=== PATIENT | female | born 1975 | race Caucasian/White ===

== ENCOUNTER → 2018-01-05 08:17 | Outpatient (CLI) | payer BC, SELFPAY ==
--- NOTE | 2018-01-05 08:22 | US_ITS ---
STUDY: ABDOMINAL ULTRASOUND - RIGHT UPPER QUADRANT REASON FOR VISIT: Female, 42 years old. Abdominal pain. TECHNIQUE: Ultrasound evaluation of the right upper quadrant was performed with real-time and static shultz-scale imaging. TECHNICAL QUALITY: Adequate. COMPARISON: None. FINDINGS: Liver: The liver measures 14.7 cm. There is normal echogenicity of the liver. The bile ducts are within normal limits. There is hepatic color flow. The direction of portal flow is hepatopetal. There is no demonstrated mass lesion. Gallbladder: Normal distended gallbladder. The gallbladder wall measures 2.4 mm. There is a negative sonographic Lorenz's sign. There is no pericholecystic fluid. There are no gallstones. Common Bile Duct (C.B.D.): The common bile duct measures 3.0 mm. Pancreas: Normal size of the head, body and tail of the pancreas. There is normal echogenicity of the pancreas. There is no demonstrated pancreatic mass or cyst. Right Kidney: Normal size of the right kidney. The right kidney measures 11.7 cm x 3.5 cm x 4.9 cm. Normal renal cortex. The right cortex measures 1.7 cm. There is no demonstrated renal mass or cyst. There is no right hydronephrosis. US/Gallbladder IMPRESSION: Normal right upper quadrant ultrasound examination. Electronically Signed: Shemar Cano MD at 15:53 EST Tel [phone], Service support ,
== END ==
PROVIDERS: Family Provider Family Medicine; PCP Family Medicine; Visit Provider Family Medicine
DX: R10.9 Unspecified abdominal pain (principal)
CPT/HCPCS: 76705

== ENCOUNTER → 2018-08-25 15:22 | Outpatient (CLI) | payer BC, SELFPAY | PROVIDERS: Family Provider Family Medicine; PCP Family Medicine; Referring Provider Family Medicine; Visit Provider Family Medicine | DX: R30.0 Dysuria (principal) | CPT/HCPCS: 87086; 87088 ==

== ENCOUNTER → 2018-09-30 15:12 | Outpatient (CLI) | payer BC, SELFPAY ==
--- NOTE | 2018-09-30 15:15 | RAD_ITS ---
STUDY: X-RAY - LUMBAR SPINE REASON FOR EXAM: Female, 42 years old. Pain TECHNIQUE: 5 view(s) of the lumbar spine were obtained. COMPARISON: None FINDINGS: Normal lumbar lordosis. There is no substantial scoliosis. There is a normal alignment of the vertebrae. Normal vertebral bodies and endplates. Normal disc space heights. The soft tissue structures are unremarkable. RAD/L/S Spine Min 4 Views IMPRESSION: Normal x-ray examination of the lumbar spine. Electronically Signed: César Hoyt MD at 15:23 EDT , Service support ,
== END ==
PROVIDERS: Family Provider Family Medicine; PCP Family Medicine; Referring Provider Family Medicine; Visit Provider Family Medicine
DX: M54.32 Sciatica, left side (principal)
CPT/HCPCS: 72110

== ENCOUNTER 2018-10-06 19:27 | Emergency (ER) | payer BC, SELFPAY ==
[2018-10-06 19:28] VITALS: BP 124/74; PULSE 104; RESP 14; TEMP 36.8; O2SAT 98; BMI 26.9
--- NOTE | 2018-10-06 20:37 | ED.VISSUMM ---
- ER Visit Summary Date of Service: 10/06/18 Chief Complaint: Back pain History of Present Illness: The patient is a 42 F with back pain for the past few weeks, had an x-ray done symptomatic by PCP, he examined her today and then she developed worse pain. She has no radiation. She has no bowel bladder compromise no urinary retention symptoms. She has no fever or chills. Physical Examination: Otherwise unremarkable exam, she has a soft abdomen with no suprapubic pain or mass. She has tenderness over the L5 and sacral region. This is midline pain. She has normal patellar and Achilles reflexes. She has normal plantar flexion of both feet normal dorsiflexion of both great toes. Emergency Department Course and Treatment: Patient will be treated with analgesia and discharged to follow-up with PCP she has no red flags. She will need physical therapy. Discharge stable condition Impression: Back pain This note was generated with [employer] dictation software. It may contain incorrect words, spelling, and punctuation that were not noted in review of the chart prior to signing ED Disposition - Plan for ED Patient: Disposition: Home or Assisted Living Chief Complaint: Back Instructions: ED Sprain Strain Lumbar Prescriptions: Hydrocodone Bitart/Apap 5-325 [[place] 5MG-325MG] 1 tab PO Q4H PRN PRN 2 Days #10 tab PRN Reason: Pain Referrals: Walker Rodgers MD [Primary Care Provider] -
--- NOTE | 2018-10-06 20:41 | ED.DCSUM_ITS ---
- ER Visit Summary Date of Service: 10/06/18 Chief Complaint: Back pain History of Present Illness: The patient is a 42 F with back pain for the past few weeks, had an x-ray done symptomatic by PCP, he examined her today and then she developed worse pain. She has no radiation. She has no bowel bladder com promise no urinary retention symptoms. She has no fever or chills. Physical Examination: Otherwise unremarkable exam, she has a soft abdomen with no suprapubic pain or mass. She has tenderness over the L5 and sacral region. This is midline pain. She has normal patellar and Achilles reflexes. She has normal plantar flexion of both feet normal dorsiflexion of both great toes. Emergency Department Course and Treatment: Patient will be treated with analgesia and discharged to follow-up with PCP she has no red flags. She will need physical therapy. Discharge stable condition Impression: Back pain This note was generated with [employer] dictation software. It may contain incorrect words, spelling, and punctuation that were not noted in review of the chart prior to signing ED Disposition - Plan for ED Patient: Disposition: Home or Assisted Living Chief Complaint: Back Instructions: ED Sprain Strain Lumbar Prescriptions: Hydrocodone Bitart/Apap 5-325 [[place] 5MG-325MG] 1 tab PO Q4H PRN PRN 2 Days #10 tab PRN Reason: Pain Referrals: Walker Rodgers MD [Primary Care Provider] -
[2018-10-06] MEDS: HYDROmorphone 1 MG/ML Syringe SC (20:43)
[2018-10-06 21:16] VITALS: BP 121/74; PULSE 101; RESP 18; O2SAT 97
--- NOTE | 2018-10-06 21:21 | ED.RN ---
no reaction noted at injection site.
== END 2018-10-06 21:21 | disposition home or self-care (01) ==
PROVIDERS: Emergency Provider Emergency Medicine; Family Provider Family Medicine; PCP Family Medicine
DX: M54.5 Low back pain (principal); G89.29 Other chronic pain; F32.9 Major depressive disorder, single episode, unspecified
CPT/HCPCS: 96372; 99282

== ENCOUNTER 2018-11-04 15:30 | Outpatient (RCR) | payer BC, SELFPAY ==
--- NOTE | 2018-10-09 16:29 | HP.PTEVAL ---
Patient's Visit Information VÍCTOR CARRERO is a 42 year old F referred to Physical Therapy by Jairon Perdomo with a diagnosis of BACK PAIN. Date of Evaluation: 10/09/18 Physical Therapist: Jeet Richmond PT, - Visit Plan Frequency: 2x /Week Duration: 4 Weeks Plan: KIRT EX'S ,PROGRESS TO GRADE DLS,POSTURAL EX'S,MANUAL THERAPY,MODALTIES FOR PAIN RELEIVE - Subjective Subjective: This 42 y/o female presents to physical therapy back pain since July 2018. Patient symptoms onset in left side but centralized in lumbar . Symptoms aggraveted with crossfit fit activities. Patient symptoms becomae worse in August. Patient followed with MD then nadege PT. Patient went ER 2days ago few days symptoms worse did tramadol. Patient seen chiropractor ,massage. Symptoms bending,lifting,sitting. Symptoms better with walking. Coughing/seezing +. Pain affects sleeping. Bowel/bladder good.No h/o back pain.Pain symtrical lumbar.Denies parathesia/tingling.Symptoms affects QOL and affect function. SOCIAL: single. VOCATION: [employer] - Pain Bilateral Back Pain Intensity (Out of 10): 2 Pain Intensity Range: 10 Bilateral Lower Extremity Pain Intensity (Out of 10): 0 Pain Intensity Range: 10 - Objective POSTURE: mild foward posture. GAIT: reciprocal pattern. NEURO: reflexes L3-4,L4-5,L5-S1 2/3,mytomes intact. MMT: quads/hams/hip 4/5 ,ankle 4/5. LUMBAR ROM: flexion mod/severe,mod/severe pain,side glides min loss. FLEXABLITY: min hams - Special Tests L/S Slump test left side: Positive L/S Slump test right side: Positive L/S Left Straight Leg Raise: Positive L/S Right Straight Leg Raise: Positive Lumbar Standing: Flexion - Mechanical Response: No effect Lumbar Standing: Flexion - Symptoms During Testing: Increases Lumbar Standing: Flexion - Symptoms After Testing: Worse Lumbar Standing: Extension - Mechanical Response: No effect Lumbar Standing: Extension - Symptoms During Testing: Increases Lumbar Standing: Extension - Symptoms After Testing: No worse Lumbar Standing: Right Side Glides - Mechanical Response: No effect Lumbar Standing: Right Side [place] - Symptoms During Testing: No effect Lumbar Standing: Right Side [place] - Symptoms After Testing: No effect Lumbar Standing: Left Side [place] - Mechanical Response: No effect Lumbar Standing: Left Side [place] - Symptoms During Testing: No effect Lumbar Standing: Left Side [place] - Symptoms After Testing: No effect Lumbar Lying: Flexion - Mechanical Response: No effect Lumbar Lying: Flexion - Symptoms During Testing: Increases Lumbar Lying: Flexion - Symptoms After Testing: Worse Lumbar Lying: Extension - Mechanical Response: No effect Lumbar Lying: Extension - Symptoms During Testing: Centralizing Lumbar Lying: Extension - Symptoms After Testing: No worse - Goals Goal 1:: Independant with HEP Goal Time Frame: 4-6 Weeks Goal 2:: Patient to be Independant with posture/body mechanics Goal Time Frame: 4-6 Weeks Goal 3:: Patient to decrease lumbar pain by 70% or greater to improve function Goal Time Frame: 4-6 Weeks Goal 4:: Patient to improve lumbar ROM for function of recovery Goal Time Frame: 4-6 Weeks Goal 5:: Patient to impove CANDY back score by 5 points to improve QOL. Goal Time Frame: 4-6 Weeks Goal 6:: Patient be able to return to prior level of function,ADL'S working out with min limiations Goal Time Frame: 4-6 Weeks - Rehabilitation Potential Physical Therapy Diagnosis: This patient has central symmtrical derrangement with disc involvemnt with with poor flexion/extension ,better with REIL ,posture correction,walking ,worse with bending,sitting. Thus benifit from skilled PT. Rehabilitation Potential: Good - Anticipated Interventions Patient/Client Instruction: Educate patient on: Condition, Plan of Care For the Purpose of:: To decrease pain, To increase ROM, To improve muscle performance and motor function, To improve ability to perform ADL's, To increase tolerance to activity/condition/position, To improve ability of physical actions for home/community/work/leisure, To improve health of tissue, To decrease soft tissue restriction, To increase flexibility/ROM, To improve tolerance to ADL's Therapeutic Exercise to Include: Strength training, Postural training, Flexibilty training, Dynamic Lumbar Stabilization, Kirt Exercises For the Purpose of:: To decrease pain, To increase ROM, To improve muscle performance and motor function, To increase tolerance to activity/condition/position, To improve performance and independence with ADL's, To improve ability of physical actions for home/community/work/leisure, To improve health of tissue, To decrease soft tissue restriction, To increase flexibility/ROM, To improve ability to perform tasks related to life management Manual Therapy Techniques to Include: Mobilization Comment: LUMBAR For the Purpose of:: To decrease pain, To increase ROM, To improve health of tissue, To decrease soft tissue restriction, To improve ability to perform tasks related to life management TENS: Yes IF ES: Yes Cryotherapy (ice pack, ice massage): Yes Thermo therapy (hot pack): Yes Ultrasound (thermal/non thermal): Yes For the Purpose of:: To decrease pain, To decrease swelling/inflammation, To increase ROM, To improve health of tissue, To decrease soft tissue restriction Thank you for the opportunity to evaluate your patient. For Medicare and Medicare HMO plans, please review the plan of care and approve it. It will need to be FAXED BACK to us at [phone] for Medicare purposes. Please let me know if there are questions or concerns regarding this plan of care. Physician Signature: Date:
--- NOTE | 2018-11-04 17:40 | HP.PTDCSUM ---
HP - PT D/C Summary It has been my pleasure to treat VÍCTOR CARRERO under orders from Amandepe Perdomo MD, for the diagnosis of BACK PAIN for a total of 7 visit(s). Discharge Date: 11/04/18 Please see the following information for a summary of their discharge status. - Subjective Subjective: Doing well ..no pain. Return to crossfit - Pain Bilateral Back Pain Intensity (Out of 10): 0 Bilateral Lower Extremity Pain Intensity (Out of 10): 0 - Overall Improvement % Improvement: 90 - Objective Objective/Function: POSTURE: WFL. GAIT: normal nestor. MMT: quads/hams/hip 4/5,ankle 5/5. LUMBAR ROM: WNL all planes. -SLR - Goals Goal 1:: Independant with HEP Goal Progress: Goal Met Goal 2:: Patient to be Independant with posture/body mechanics Goal Progress: Goal Met Goal 3:: Patient to decrease lumbar pain by 70% or greater to improve function Goal Progress: Goal Met Goal 4:: Patient to improve lumbar ROM for function of recovery Goal Progress: Goal Met Goal 5:: Patient to impove CANDY back score by 5 points to improve QOL. Goal Progress: Goal Met Goal 6:: Patient be able to return to prior level of function,ADL'S working out with min limiations Goal Progress: Goal Met - Plan Plan: D/C - D/C Information If there are questions or concerns regarding this patient's physical therapy, please feel free to call me at [phone]. Thank you for the referral of this patient. Sincerely, Jeet Richmond, PT,
== END 2018-11-04 19:00 | disposition home or self-care (01) ==
LOC: PT 15:30
PROVIDERS: Family Provider Family Medicine; PCP Family Medicine; Referring Provider Family Medicine; Visit Provider Family Medicine
DX: M54.9 Dorsalgia, unspecified (principal); M54.5 Low back pain
CPT/HCPCS: 97014; 97035; 97110; 97161; G0283

== ENCOUNTER → 2018-11-17 13:47 | Outpatient (CLI) | payer BC, SELFPAY ==
--- NOTE | 2018-11-17 13:53 | BI_ITS ---
MAMMOGRAPHY - BILATERAL DIAGNOSTIC REASON FOR EXAM: Female, 42 years old. Recent bilateral breast implants with possible rupture of the left breast implant. Tenderness in the upper outer quadrant of the left breast. PERTINENT HISTORY: Non-contributory. TECHNIQUE: Digital bilateral breast meghan (3D mammographic acquisition) in the CC and MLO projections. 2-D mediolateral oblique (MLO) and craniocaudad (CC) views of both breasts were obtained. CAD: Full Field Digital Mammography with Computer Added Detection was performed. COMPARISON: Comparison is made with prior outside examination dated April 24, 2017. FINDINGS: Breast Composition: There are scattered areas of fibroglandular density. There are no dominant masses or suspicious calcifications. Bilateral breast implants are seen. The left breast implant is smaller than the right. No mammographic evidence of rupture at this time. No other significant abnormalities are identified. BI/DIAG MAMM W/CAD, BILAT IMPRESSION: Stable bilateral diagnostic mammogram. One year follow-up recommended. (A) ASSESSMENT CATEGORY: BIRADS Category 2: Benign. A letter regarding these results will be sent to the patient by the facility within 30 days. Approximately 10% of breast cancers are not detected by mammography. A normal mammogram should not delay biopsy of a clinically suspicious abnormality. Electronically Signed: Shemar Cano MD at 15:12 EST Tel [phone], Service support ,
--- NOTE | 2018-11-17 13:54 | US_ITS ---
STUDY: ULTRASOUND BREAST - LEFT REASON FOR EXAM: Female, 42 years old. Left lateral breast pain. TECHNIQUE: Axial and longitudinal images of the LEFT breast were performed with a high resolution ultrasound transducer. COMPARISON: Comparison is made with prior mammogram done earlier in the day. FINDINGS: LEFT Breast: The lower outer quadrant of the left breast was examined by ultrasound. There is homogeneous fibroglandular tissue. No solid or cystic mass lesion is seen. The breast implant is visualized. US/Breast Limited Unilateral IMPRESSION: No sonographic abnormality is seen. ASSESSMENT CATEGORY: BIRADS Category 2: Benign. A letter regarding these results will be sent to the patient by the facility within 30 days. Electronically Signed: Shemar Cano MD at 15:50 EST Tel [phone], Service support ,
--- OUTSIDE RECORDS SUMMARY | 2019-02-19 01:14 | XMS RPT_ITS | Clinical Summary ---
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 Cubital tunnel 37446562 Active Long S Cubital tunnel syndrome (SNOMED CT) 03/12 03/26 Tutu syndrome Pain in right 89356594 Active Long S Pain in elbow elbow (SNOMED CT) 03/12 03/26 Tutu Cervical 16443716 Active Long S Cervical radiculopathy (SNOMED CT) 03/12 03/12 Tutu radiculopathy Medications Medication Instructions Start Stop Generic Name NDC Provider Date Date FLUOXETINE HCL One tablet by FLUOXETINE HCL 92994497131 Hannah N 20 MG CAPS mouth daily 5 Anthony ETODOLAC 400 One tablet by ETODOLAC 39457625820 Hannah N MG TABS mouth twice 5 Anthony daily MIRALAX PACK 17 GRAMS ORAL POLYETHYLENE 46677052161 Hannah N DAILY 5 GLYCOL 3350 Anthony Medications Administered No information available. Allergies, Adverse Reactions, Alerts Allergy Name Reaction Description Start Date Severity Status Provider SHERRY SLEEPYulisa Critical Active Hannah N Anthony CODEINE SULFATE GI UPSET Critical Active Hannah N Anthony Results Date Name Value Unit Range Flag Description Office Visit MEDS REVIEW Done Documentation of current medications (procedure) ORALTOBACUSE Never Tobacco smoking status NHIS SMOK STATUS Never smoker Tobacco smoking status [facility] Plan of Care Type Date Detail Referral [facility], [address] [place] [address], [phone] Referral [facility], [address] [place] [address], [phone] Pending order EMG Pending order Nerve Conduction Pending order X-Ray, Spine, Cervical 2-3 views Pending order EMG Pending order Nerve Conduction Pending order Nerve Conduction Pending Order excluded from report: Pending order EMG Pending Order excluded from report: Procedures No information available. Vital Signs Date Name Value Unit Description BMI (Body Mass Index) 28.66 kg/m2 Body Mass Index [Ratio] Height 64 [in_us] height E&M - 8302-2 Weight Measured 167 [lb_av] weight E&M - 3141-9
--- OUTSIDE RECORDS SUMMARY | 2019-02-19 01:14 | XMS RPT_ITS | Clinical Summary ---
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 Cubital tunnel 14971362 Active Long S Cubital tunnel syndrome (SNOMED CT) 03/12 03/26 Tutu syndrome Pain in right 24090944 Active Long S Pain in elbow elbow (SNOMED CT) 03/12 03/26 Tutu Cervical 32451591 Active Long S Cervical radiculopathy (SNOMED CT) 03/12 03/12 Tutu radiculopathy Medications Medication Instructions Start Stop Generic Name NDC Provider Date Date FLUOXETINE HCL One tablet by FLUOXETINE HCL 45551998292 Hannah N 20 MG CAPS mouth daily 5 Anthony ETODOLAC 400 One tablet by ETODOLAC 15307753313 Hannah N MG TABS mouth twice 5 Anthony daily MIRALAX PACK 17 GRAMS ORAL POLYETHYLENE 27050277556 Hannah N DAILY 5 GLYCOL 3350 Anthony [...] status NHIS SMOK STATUS Never smoker Tobacco use [facility] Plan of Care Type Date Detail Referral [facility], [address] [place] [address], [phone] Referral [facility], [address] [place] [address], [phone] Pending order EMG Pending order Nerve Conduction [...]
--- OUTSIDE RECORDS SUMMARY | 2019-02-19 01:14 | XMS RPT_ITS | Clinical Summary ---
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 Cubital tunnel 70348545 Active Long S Cubital tunnel syndrome (SNOMED CT) 03/12 03/26 Tutu syndrome Pain in right 12465107 Active Long S Pain in elbow elbow (SNOMED CT) 03/12 03/26 Tutu Cervical 39218048 Active Long S Cervical radiculopathy (SNOMED CT) 03/12 03/12 Tutu radiculopathy Medications Medication Instructions Start Stop Generic Name NDC Provider Date Date FLUOXETINE HCL One tablet by FLUOXETINE HCL 89897018841 Hannah N 20 MG CAPS mouth daily 5 Anthony ETODOLAC 400 One tablet by ETODOLAC 95303206787 Hannah N MG TABS mouth twice 5 Anthony daily MIRALAX PACK 17 GRAMS ORAL POLYETHYLENE 26206463853 Hannah N DAILY 5 GLYCOL 3350 Anthony [...] NHIS SMOK STATUS Never smoker Tobacco use [facility] Plan of Care Type Date Detail Appointment 03:30 PM Long Cam, [address], [address], [place], [address], Referral [facility], [address], [place], [address] Referral [facility], [facility], [place], [address] Pending order EMG Pending order Nerve Conduction [...]
--- OUTSIDE RECORDS SUMMARY | 2019-02-19 01:14 | XMS RPT_ITS ---
:1975 Author Organization OHIP Care Team Providers Name Role Phone GUDELIA RG Referring Unavailable GUDELIA RG Admitting Unavailable GUDELIA RG Attending Unavailable DARION BRICENO Attending Unavailable Rodgers, Walker Primary Care Unavailable DARION BRICENO Consulting Unavailable Vishal, Walker Attending Unavailable Rodgers, Walker Referring Unavailable Rodgers, Walker Primary Care Unavailable Schinner, Walker E Attending Unavailable Schinner, Walker E Referring Unavailable Rodgers, Walker Primary Care Unavailable Referred, Self Attending Unavailable Rodgers, Walker Primary Care Unavailable Rodgers, Walker Attending Unavailable Rodgers, Walker Referring Unavailable Rodgers, Walker Primary Care Unavailable Rodgers, Walker Primary Care Unavailable Michele Hanks Attending Unavailable Leanne, Jairon Attending Unavailable Leanne, Jairon Referring Unavailable Rodgers, Walker Primary Care Unavailable PROBLEMS PROBLEMS DATE TYPE CONDITION / CODE ATTENDING STATUS SOURCE 12/18/2018 Active Other acute ABDULLAHICHARLEY HALLNETH Active [place] [facility] Other / G89.18(ICD-10) [place] Repository 11/05/2018 Unknown M54.9 - Dorsalgia, SathishjenniferMichele Active [place] unspecified / Community M54.9(ICD-10) Hospital Repository 11/05/2018 Unknown M54.32 - Sciatica, Walker Rodgers Active [place] left side / Community M54.32(ICD-10) Hospital Repository 09/14/2018 Unknown R30.0 - Dysuria / SchindukeWalker Active [place] R30.0(ICD-10) E [facility] Repository 01/23/2018 Unknown R10.9 - Unspecified Walker Rodgers Active [place] abdominal pain / Community R10.9(ICD-10) Hospital Repository PROCEDURES PROCEDURES No Procedure Records FoundRESULTS RESULTS PLAN OF CARE Observed: 12/18/2018 Status: COMPLETED Source: [place] 5:18 PM CLINIC OTHER CAMPUS REPOSITORY HNO ID: [id number] Author: Christian Fraga (Occupational Therapy Manager) Service: (none) Author Type: (none) Type: Plan of Care Filed: 12/18/2018 5:49 PM Note Text: PHARMACY BEDSIDE DELIVERY SERVICE Patient Name: Víctor Junior The marked outpatient medications were Filled at: [facility] and delivered to the patient's bedside to patient Medication List START taking these medications oxyCODONE-acetaminophen 5-325 mg tablet Commonly known as: PERCOCET Take 1 tablet by mouth every 4 hours as needed for Pain for up to 7 days. x CONTINUE taking these medications JOHNNY ORAL escitalopram oxalate 20 mg tablet Commonly known as: LEXAPRO HAIR VITAMINS ORAL OTC PRODUCT You might also be taking other medications not listed above. If you have questions about any of your other medications, talk to the person who prescribed them or your Primary Care Provider. Christian Fraga ([email or web address]) PAGER: [phone] December 18, 2018 5:18 PM ANES POST Observed: 12/18/2018 Status: COMPLETED Source: [place] 4:50 PM [facility] OTHER [place] REPOSITORY HNO ID: [id number] Author: Gerard Nolasco) Coleen Service: Anesthesiology Author Type: Resident Type: Anesthesia PostOp Filed: 12/18/2018 4:50 PM Note Text: POST ANESTHESIA EVALUATION NOTE SERVICE DATE: 12/18/2018 SERVICE TIME: 4:50 PM : 1975 Vitals: 12/18/18 1043 12/18/18 1458 Temp: 37 ?C (98.6 ?F) 36.4 ?C (97.5 ?F) 12/18/18 1515 12/18/18 1530 12/18/18 1545 12/18/18 1615 BP: 121/68 117/62 108/58 117/56 12/18/18 1515 12/18/18 1530 12/18/18 1545 12/18/18 1615 Pulse: 89 89 88 97 12/18/18 1515 12/18/18 1530 12/18/18 1545 12/18/18 1615 Resp: 18 18 18 18 12/18/18 1515 12/18/18 1530 12/18/18 1545 12/18/18 1615 SpO2: 95% 93% 95% 95% Validated Vital Signs: Yes POST ANES STATUS: No apparent anesthetic complications. The patient is appropriately hydrated with stable respiratory and cardiovascular status. Patient has safe and adequate airway control. The patient has appropriate pain relief and no significant post operative nausea or vomiting. The patient has achieved baseline mental status. Intra-Operative Events: No Significant Anesthesia Events Further assessment by Anesthesia Service: None Other Remarks: SIGNATURE: Gerard Horne DO PATIENT NAME: Víctor Junior DATE: December 18, 2018 TIME: 4:50 PM PAGER/CONTACT #: [phone] PT ED Observed: 12/18/2018 Status: COMPLETED Source: [place] 4:34 PM [facility] OTHER [place] REPOSITORY HNO ID: [id number] Author: Amy (Rn) CASPER Tran Service: Nursing Author Type: Registered Nurse Type: Patient Education Filed: 12/18/2018 4:37 PM Note Text: PATIENT EDUCATION TOPIC: PROCEDURE / SURGERY: Post-op Teaching: discharge PATIENT NAME: Víctor Junior PATIENT LOCATION: SURGERY CTR POOL/SP S* READINESS TO LEARN COGNITIVE ABILITY: Alert and oriented MOTIVATION TO LEARN: Eager FAMILY SUPPORT: High - Very involved in pt care INSTRUCTION PROVIDED TO: Patient and Significant Other PATIENT LEARNS BEST BY: Individual Instruction Written Instruction - Hand-outs Verbal Instruction FACTORS AFFECTING LEARNING: None PHYSICAL LIMITATIONS AFFECTING LEARNING: None LEARNING RESPONSE DIAGNOSIS: ADULT: Mastopexy breast augmentation PATIENT/FAMILY RESPONSE: Verbalizes understanding of: POST OPERATIVE INSTRUCTIONS RELATED TO: ROUTINE MONITORING AND PROCEDURES: N/A, CARE TO PREVENT COMPLICATIONS: Incisional Care and Early Ambulation, PAIN CONTROL: Pain Scale, USE OF KNEE IMMOBILIZER: N/A, HOW TO GAIN MOTION BACK: N/A, PRE DISCHARGE: Follow up arrangement with physician, Safety precautions and Bathing, ADVERSE CONDITIONS TO INFORM YOUR DOCTOR: Signs AND symptoms of blood clot, Fever degree greater than 100F or 37.7C and Severe pain at surgical site METHOD OF INSTRUCTION: Individual instruction Written instruction - handouts Verbal instruction FOLLOW-UP PLAN: Recommend - Recommend continued instruction and follow up as directed INSTRUCTIONAL AIDS USED: NA SUPPLEMENTAL MATERIAL PROVIDED TO PATIENT: None REFERRAL (RECOMMENDATION): None Electronically Signed By: Amy Tran RN BRIEF OP NOT Observed: 12/18/2018 Status: COMPLETED Source: [place] 3:10 PM CLINIC OTHER CAMPUS REPOSITORY O ID: [id number] Author: Gudelia Rg Service: Plastic Surgery Author Type: Physician Type: Brief Op Note Filed: 12/18/2018 3:11 PM Note Text: BRIEF OPERATIVE / PROCEDURE NOTE LOG ID: [id number] SURGERY/PROCEDURE DATE: 12/18/2018 INCISION/PROCEDURE START TIME: 12:17 PM INCISION CLOSE/PROCEDURE END TIME: 2:43 PM SURGEON(S)/PROCEDURALIST(S) AND CLOTHES WRINGER(S): Surgeon(s) and Role: * Gudelia Rg - Primary Floor Manager: Boo Smith SURGERY/PROCEDURE(S): bilateral breast implant exchange and mastopexy ANESTHESIA: General FINDINGS: mammary hypoplasia ESTIMATED BLOOD LOSS: 50 mls SPECIMENS: None COMPLICATIONS: None PRE-OP/PRE-PROCEDURE DIAGNOSIS: same POST-OP/POST-PROCEDURE DIAGNOSIS: SAME SIGNATURE: Gudelia Rg MD PATIENT NAME: Víctor Junior DATE: December 18, 2018 TIME: 3:10 PM PAGER/CONTACT #: PT ED Observed: 12/18/2018 Status: COMPLETED Source: [place] 11:00 AM [facility] REPOSITORY HNO ID: [id number] Author: Usha Musa RN Service: Nursing Author Type: Registered Nurse Type: Patient Education Filed: 12/18/2018 11:01 AM Note Text: PATIENT EDUCATION TOPIC: PROCEDURE / SURGERY: Pre-op Teaching: Logistics Protocols Complication Prevention PATIENT NAME: Víctor Junior PATIENT LOCATION: SURGERY [facility] POOL/SP S* READINESS TO LEARN COGNITIVE ABILITY: Alert and oriented MOTIVATION TO LEARN: Eager FAMILY SUPPORT: Unable to assess - Family not present INSTRUCTION PROVIDED TO: Patient PATIENT LEARNS BEST BY: Verbal Instruction FACTORS AFFECTING LEARNING: None PHYSICAL LIMITATIONS AFFECTING LEARNING: None LEARNING RESPONSE DIAGNOSIS: ADULT: Mammary hypoplasi PATIENT/FAMILY RESPONSE: Verbalizes understanding of: PAIN MANAGEMENT-Effective strategies to manage pain in addition to pain medication PRE-OPERATIVE INSTRUCTIONS-Correct action to take to follow pre-operative instructions METHOD OF INSTRUCTION: Verbal instruction FOLLOW-UP PLAN: Patient instructed to call with any further issues INSTRUCTIONAL AIDS USED: NA SUPPLEMENTAL MATERIAL PROVIDED TO PATIENT: None REFERRAL (RECOMMENDATION): None Electronically Signed By: Usha Musa RN HISTORY PHYSICAL Observed: 12/18/2018 Status: COMPLETED Source: [place] 10:27 AM [facility] REPOSITORY HNO ID: [id number] Author: Olga Lidia Francis Service: Plastic Surgery Author Type: Nurse Practitioner Type: HANDP Filed: 12/18/2018 10:49 AM Note Text: UPDATED HISTORY AND PHYSICAL EXAMINATION SERVICE DATE: 12/18/2018 SERVICE TIME: 10:28 AM SERVICE: Plastic Surgery PHYSICAL EXAM MUST BE COMPLETED ON ADMISSION The History and Physical (completed in the past 30 days) has been reviewed and the patient has been examined. The contents accurately reflect the patient's condition with the following additions or revisions since the HANDP was completed. Patient denies any changes to health since last examination. Planned procedure for today is Bilateral breast augmentation implant exchange, possible mastopey. Medication reconciliation list reviewed in [facility]. Past medical history, past surgical history, social history and family history reviewed and updated in [facility]. ALLERGIES Allergen Reactions - Codeine - Morphine Mental Status Change Violent - Paxil [Paroxetine H* Unknown BP 111/58 Pulse 75 Temp 37 ?C (98.6 ?F) Resp 16 LMP 07/13/2014 SpO2 99% Examination indicates no changes. On examination today: General: Alert and appropriate. Lungs: Clear to auscultation bilaterally. Heart: Rate within normal limits. Regular rhythm . Abdomen: BS present x4, soft, non tender. A: Mammary hypoplasia P: Bilateral breast augmentation implant exchange, possible mastopey This HANDP can be found in the Electronic Medical Record dated 12/14/2018 by Isidro Lam PA-C. SIGNATURE: Olga Lidia Francis APRN.CNP PATIENT NAME: Víctor Junior DATE: December 18, 2018 TIME: 10:28 AM ANES PREOP Observed: 12/18/2018 Status: COMPLETED Source: [place] 10:09 AM [facility] OTHER CAMPUS REPOSITORY O ID: [id number] Author: Gerard Colunga (Magdalena Horne Service: Anesthesiology Author Type: Resident Type: Anesthesia PreOp Filed: 12/18/2018 10:38 AM Note Text: ANESTHESIOLOGY DAY OF SURGERY NOTE SERVICE DATE: 12/18/2018 SERVICE TIME: 10:09 AM : 1975 Procedure(s) (LRB): AUGMENTATION BREAST BILATERAL (Bilateral) Surgeon(s): Gudelia Rg Estimated body mass index is 29.52 kg/m? as calculated from the following: Height as of 12/14/18: 162.6 cm (5' 4). Weight as of 12/14/18: 78 kg (172 lb). Most recent hematocrit and potassium results: Hematocrit 39.2 10/31/2017 Potassium 3.7 10/31/2017 Component Latest Ref Rng AND Units 10/31/2017 WBC 3.70 - 11.00 k/uL 5.74 RBC 3.90 - 5.20 m/uL 4.23 Hemoglobin 11.5 - 15.5 g/dL 13.3 Hematocrit 36.0 - 46.0 % 39.2 MCV 80.0 - 100.0 fL 92.7 MCH 26.0 - 34.0 pG 31.4 MCHC 30.5 - 36.0 g/dL 33.9 RDW-CV 11.5 - 15.0 % 11.9 Platelet Count 150 - 400 k/uL 227 MPV 9.0 - 12.7 fL 11.1 Neut% % 55.0 Abs Neut (ANC) 1.45 - 7.50 k/uL 3.15 Lymph% % 34.7 Abs Lymph 1.00 - 4.00 k/uL 1.99 Schoolcraft% % 6.3 Abs [place] <0.87 k/uL 0.36 Eosin% % 3.1 Abs Eosin <0.46 k/uL 0.18 Baso% % 0.9 Abs Baso <0.11 k/uL 0.05 Nucleated Reds 0 /100 WBC 0.0 Absolute nRBC <0.01 k/uL <0.01 Diff Type Auto Diff Glucose 74 - 99 mg/dL 84 BUN 7 - 21 mg/dL 12 Creatinine 0.58 - 0.96 mg/dL 0.79 Sodium 136 - 144 mmol/L 140 Potassium 3.7 - 5.1 mmol/L 3.7 Chloride 97 - 105 mmol/L 102 CO2 22 - 30 mmol/L 26 Anion Gap 9 - 18 mmol/L 12 Calcium 8.5 - 10.2 mg/dL 8.6 eGFR- >60 eGFR-All Other Races . >60 ANES DOS/PREOP NOTE: Vitals: There were no vitals filed for this visit. 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 Current Outpatient Prescriptions on File Prior to Encounter: FEXOFENADINE HCL (JOHNNY ORAL) Take by mouth. Current Facility-Administered Medications: lidocaine 10 mg/mL (1 %) 1-2 mg injection (XYLOCAINE) 0.1- 0.2 mL INTRADERMAL PRN Gudelia Rg lactated ringers infusion 5-30 mL/hr INTRAVENOUS CONTINUOUS Gudelia Rg NaCl 0.9% 2-10 mL 2-10 mL INTRAVENOUS q 12 H Gudelia Rg ceFAZolin iv piggyback 2 g in D5W (iso-osmotic) 100 mL (ANCEF) 2 g INTRAVENOUS Pre-Op Once Gudelia Rg Allergies: ALLERGIES Allergen Reactions - Codeine - Morphine Mental Status Change Violent - Paxil [Paroxetine H* Unknown DOS EXAM: Adequate NPO status: Yes Anesthetic risks, benefits, alternatives, personnel and consent discussed: Yes Patient agrees to proceed: Yes Previous Anesthesia: No history of adverse event. Airway Assessment: MP 1; Neck ROM: Full ROM without neurologic symptoms; Airway Evaluation: No significant abnormalities Symptoms of Sleep Apnea: none Dentition: Teeth intact Additional Physical Exam: Lungs: Patient health status unchanged since recent history and physical. See history and physical for exam findings. Cardiac: Patient health status unchanged since recent history and physical. See history and physical for exam findings. Additional Pertinent Findings: N/A Blood Products: Not anticipated for this procedure. Anesthetic Plan: General, Standard ASA Monitors Pain Management Plan: Parenteral or Oral ASA Class: 2 Other Medical Problems: None Chronic Beta Adriana medication administered within 24 hours: N/A I have interviewed and examined the patient. I have reviewed the medical record and/or the pre-anesthesia evaluation, pertinent labs, and test results. Significant changes in the patient's condition since the History and Physical, not otherwise documented in primary service progress notes: No This contains updated information obtained within 48 hours of Surgery/Procedure. SIGNATURE: Lonny Shearer DO PATIENT NAME: Víctor Junior DATE: December 18, 2018 TIME: 10:09 AM CSN: [id number] HCG QUAL, URINE Collected: 12/18/2018 Status: F Source: [place] 10:03 AM [facility] REPOSITORY TYPE CODE TESTS RESULT OUT OF REFERENCE UNITS RANGE LAB UHCG Negative HCG Qual, Negative Urine OPERATIVE NO Observed: 12/18/2018 Status: COMPLETED Source: [place] 12:00 AM [facility] REPOSITORY HNO ID: [id number] Author: Gudelia Rg Service: Plastic Surgery Author Type: Physician Type: Operative Report Filed: 12/22/2018 8:35 AM Note Text: [facility] - Operative Report VÍCTOR JUNIOR : 1975 AGE: 43. SEX: F PATIENT TYPE: A HOSP SVC: PLAS LOCATION: [facility] ATTENDING PHYSICIAN: REGINA NUMBER: [id number] DATE OF SURGERY/PROCEDURE: 12/18/2018 INCISION/PROCEDURE START TIME: 12:17 PM INCISION CLOSE/PROCEDURE END TIME: 2:43 PM PREOPERATIVE DIAGNOSIS: Mammary hypoplasia. POSTOPERATIVE DIAGNOSIS: Mammary hypoplasia. SURGEON: Gudelia Rg MD CLOTHES WRINGER: Boo Smith S.A. SURGERY/PROCEDURE: Bilateral breast implant exchange with augmentation and bilateral mastopexy. ANESTHESIA: General. INDICATION FOR SURGERY: This is a woman who underwent breast augmentation approximately 1 year ago. She has been concerned regarding some continued ptosis and lack of superior full. I have discussed with her potentially removing the old implants, replacing the bigger implants, and having a mastopexy if needed. We have discussed her anticipation. I have seen pictures of her expected results and I have discussed potential realistic or unrealistic goals. She understands potential for breast augmentation with potential for bleeding, infection, hematoma, capsular contracture, interference with nipple sensitivity, , and continued deformities. She understands and wishes to proceed. DESCRIPTION OF PROCEDURE: The patient was marked in the preop area, marking the breast meridian, midline, and inframammary crease and previous incisions. She was then brought to the operating room and placed on table in supine position. After adequate anesthesia was established, the chest was prepped and draped in sterile manner. 2 g of Ancef was given intravenously. Sequential stockings were applied. The chest after being prepped and draped, the left side was 1st approached. The previous incision was opened, taken down to the breast capsule, and the implant was removed intact. This was done bilaterally. Breast sizer was used with a 545 cc sizer. This is not too large for her body frame. We planned on using a 560 cc implant. Following this, the areas were cleaned, the pocket was infiltrated and irrigated with a solution of 50,000 units of bacitracin, 1 g of Ancef, 80 mg of gentamicin and saline. Tailor-tack mastopexy was planned, tightening the inframammary crease as well as the descending limb. No-touch technique was then planned. Pre-placed sutures of 4-0 Vicryl placed in the deep tissue. [place] were cut off, held by hemostats. Gloves were changed and a Almeida funnel was then used to place 560 cc implants in a no-touch technique. The pre-placed sutures were closed. The previous pattern had been excised. Cautery was used for hemostasis and the mastopexy was closed with 4-0 and 5-0 Vicryl, 5-0 fast-absorbing gut sutures. The areas were cleaned and dressed with Aquacel surgical dressings and a surgical bra. She was taken to the recovery room in good condition. Gudelia Rg MD KA:[id number] /[id number] cc: NURSING PROG Observed: 12/17/2018 Status: COMPLETED Source: [place] 9:08 AM [facility] OTHER CAMPUS REPOSITORY HNO ID: [id number] Author: Molly Hernandez RN Service: (none) Author Type: Registered Nurse Type: Nursing Progress Note Filed: 12/17/2018 9:11 AM Note Text: PACC Nurse Progress Note History AND Physical: PACC Visit Date: 12/14/2018 Original HANDP Date: 12/14/2018 ED visit Date: N/A Outside HANDP Scanned Date: N/A Labs Within Last 6 Months: N/A Imaging Within Last 12 Months: N/A Cardiac Testing: N/A Last Menstrual Period: LMP Date: Patient's last menstrual period was 07/13/2014. Hysterectomy Postmenopausal >1yr: unknown, S/P Hysterectomy: Yes BMI Percentile (PEDS): N/A Risk Assessment: N/A Anesthesia Review: N/A Narrative: N/A Pre-op Considerations: Patient's last menstrual period was 07/13/2014. Hysterectomy Hx of: Anxiety/Depression IBS Chart Check: COMPLETED Molly Hernandez RN December 17, 2018 0911 HISTORY PHYSICAL Observed: 12/14/2018 Status: COMPLETED Source: [place] 3:02 PM [facility] [place] REPOSITORY HNO ID: [id number] Author: Bridget aLm (Pa) Service: (none) Author Type: Physician Tank Builder And Erector Type: HANDP Filed: 12/14/2018 3:49 PM Note Text: HISTORY AND PHYSICAL EXAMINATION SERVICE DATE: 12/14/2018 SERVICE TIME: 3:02 PM PRIMARY CARE PHYSICIAN: Walker Rodgers MD REASON FOR VISIT: Víctor Junior is a 43 year old female who is scheduled for BILATERAL BREAST IMPLANT EXCHANGE, POSSIBLE MASTOPEY at the request of Dr. Gudelia Rg for consultation. My final recommendation will be communicated back to the requesting physician by way of shared medical record or letter. The patient has the following: ACTIVE PROBLEM LIST Depression Celiac Disease Laxity of Abdominal Wall Ibs (Irritable Bowel Syndrome) Subjective CHIEF COMPLAINT: Breast augmentation HPI: 43 yo female with h/o bilateral breast augmentation and mastopexy 2017 with abdominoplasty. Patient states breast are not in the right place. She states she had a mammogram done recently outside of [facility]. Patient had an intended > 50 lb weight loss prior to surgery 2016. 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 PAST SURGICAL HISTORY Procedure Laterality Date - PAST SURGICAL HISTORY OF Bilateral 2017 breast augmentation with life, abdominoplasty - S TUBAL LIGATION 2004 - VAG HYST,RMV TUBE/OVARY 2014 [facility] LSO FAMILY HISTORY Problem Relation Age of Onset - Cancer Mother cervical - Coronary Artery Disease Mother - other () Father unknown history SOCIAL HISTORY: Social History Marital status: Spouse name: Years of education: Number of children: 1 Occupational History 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 Taking Yes OTC PRODUCT Daily probiotic Taking Yes multivitamin with iron (HAIR VITAMINS ORAL) Take 2 tablets by mouth once daily. Taking Yes FEXOFENADINE HCL (JOHNNY ORAL) Take by mouth. Taking Yes No medication comments found. ALLERGIES Allergen Reactions - Codeine - Morphine Mental Status Change Violent - Paxil [Paroxetine H* Unknown REVIEW OF SYSTEMS: PAIN ASSESSMENT: General: No weight loss, malaise or fevers. 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 No neurological symptoms or problems., + sinus HAs No migraines No neuropathy Respiratory: No history of current cough or dyspnea, or pneumonia in the past 6 weeks. No history of respiratory/pulmonary symptoms or problems. Cardiovascular: No history of HTN requiring medication, no history of angina, CHF, MT, cardiac surgery or stents. Denies rest pain, gangrene or revascularization/amputation for PVD. No history of cardiovascular symptoms or problems. No DVT/PE +IBS per chart GI: No history of GI symptoms or problems. No history of esophageal varices, recent ascites, or ETOH greater than 2 drinks per day. No liver disease : No history of dysuria, frequency or incontinence,, stones or chronic kidney disease EQUAL OPPORTUNITY REPRESENTATIVE: Negative for abnormal vaginal bleeding, abnormal vaginal discharge. : N/A, Patient's last menstrual period was 07/13/2014. Hysterectomy Endocrine: No history of diabetes. Has not taken steroids within the past 30 days. No history of endocrinological symptoms or problems. Hematology: No history of bleeding or clotting disorder. Pt is not taking anti-coagulation or platelet medications. No history of hematological symptoms or problems. Oncology: No history of CA metastasis, chemo within 30 days, or radiotherapy within 90 days. Has not lost 10% of body wt in 6 months. No history of oncological symptoms or problems. Psych: Anxiety, Depression on rx Musculoskeletal: Back pain finished PT better now Skin: Negative for lesions, rash and itching. Objective PHYSICAL EXAM: VITALS: BP 97/60 Pulse 61 Temp 98.4 Ht 5' 4 (1.63m) Wt 172 lb (78.0kg) SpO2 99% LMP 07/13/2014 BMI 29.51 kg/(m2). General: Alert and oriented Skin: Normal color, no rash, no lesions. HEENT: EOM, pupils equal, round and reactive. Cardiovascular: Normal S1 AND S2, no rubs, murmurs or gallops. No JVD. Pulse regular. Lungs: Normal breath sounds, no wheezes or crackles. Abdomen: Soft, non-tender, no rigidity. Extremities: No deformity, no edema or tenderness, no joint swelling or clubbing. Neurological: Normal cognition and motor skills. Pulses: Carotid and radial pulses normal +2. Diagnostic tests reviewed for today's visit: Lab Value Units Date High Low HB No results within date range. HCT No results within date range. WBC No results within date range. PLT No results within date range. NA No results within date range. K No results within date range. GLUC No results within date range. BUN No results within date range. CREAT No results within date range. PTSEC No results within date range. INR No results within date range. APTT No results within date range. ALT No results within date range. AST No results within date range. TBILI No results within date range. TSH No results within date range. Lab Value Units Date High Low HCGQT No results within date range. UHCG No results within date range. HCG, BODY* No results within date range. Lab Value Units Date High Low ABORHD No results within date range. ABSCREEN No results within date range. No results found for: HBA1C No new labs or tests Assessment ASSESSMENT Anxiety/Depression IBS METS: Climb a flight of stairs or walk up a hill (5.50 METs) Participate in moderate recreational activities, such as golf, bowling, dancing, doubles tennis, or throwing a baseball or football (6.00 METs) ASA Class: 2 ANESTHESIA FINDINGS: Intubation History: No history of difficult intubation Significant Anesthesia Considerations: None Airway Exam: General: Normal appearance Mallampati Score is CLASS II ULBT: Class I - Lower incisors can bite the upper lip above the sukhjinder line Neck: Normal appearance and function, Distance from hyoid to mentum during neck extension is at least 3 finger breaths Mouth: Normal tongue size and Mouth opening greater than 2 finger breaths Dentition: Intact and Caps/crowns Airway History: No abnormal airway history STOP BANG Score: Criteria: Tired Observed apnea Score = 2 PLAN This patient is optimally prepared for surgery. CONSULTS: Patient does not require consults for optimization at this time. The Following Tests/Procedures Have Been Initiated: Labs not indicated per PACC protocol, EKG not indicated per PACC protocol Planned Anesthetic: General Instructions Given to Patient: Patient given verbal and written preop instructions and voices comprehension and compliance. SIGNATURE: Bridget Lam PA-C PATIENT NAME: Víctor Junior DATE: December 14, 2018 TIME: 3:02 PM PAGER/CONTACT #: DIAG MAMM W/CAD, Observed: 11/17/2018 Status: F Source: [place] 1:56 PM [facility] REPOSITORY [facility] Imaging Services [address] [place] [address] DIAG MAMM W/CAD, BILAT MR#: [id number] Acct: [id number] Name: VÍCTOR JUNIOR Rep #: [id number] : 1975 F 42 From: Shemar Cano MD PCP: Walker Rodgers MD Status: REG CLI Study: DIAG MAMM W/CAD, BILAT Date of Exam: 11/17/18 Exam# [id number] Ordering Dr: GUDELIA RG MAMMOGRAPHY - BILATERAL DIAGNOSTIC REASON FOR EXAM: Female, 42 years old. Recent bilateral breast implants with possible rupture of the left breast implant. Tenderness in the upper outer quadrant of the left breast. PERTINENT HISTORY: Non-contributory. TECHNIQUE: Digital bilateral breast meghan (3D mammographic acquisition) in the CC and MLO projections. 2-D mediolateral oblique (MLO) and craniocaudad (CC) views of both breasts were obtained. CAD: Full Field Digital Mammography with Computer Added Detection was performed. COMPARISON: Comparison is made with prior outside examination dated April 24, 2017. FINDINGS: Breast Composition: There are scattered areas of fibroglandular density. There are no dominant masses or suspicious calcifications. Bilateral breast implants are seen. The left breast implant is smaller than the right. No mammographic evidence of rupture at this time. No other significant abnormalities are identified. BI/DIAG MAMM W/CAD, BILAT IMPRESSION: Stable bilateral diagnostic mammogram. One year follow-up recommended. (A) ASSESSMENT CATEGORY: BIRADS Category 2: Benign. A letter regarding these results will be sent to the patient by the facility within 30 days. Approximately 10% of breast cancers are not detected by mammography. A normal mammogram should not delay biopsy of a clinically suspicious abnormality. Electronically Signed: Shemar Cano MD at 15:12 EST Tel [phone], Service support , CC: Walker Rodgers MD; GUDELIA RG Vice President Mission Integration: Signed BREAST LIMITED Observed: 11/17/2018 Status: F Source: [place] UNILATERAL 1:56 PM [facility] REPOSITORY [facility] Imaging Services [address] [place] [address] Breast Limited Unilateral MR#: [id number] Acct: [id number] Name: VÍCTOR JUNIOR Rep #: [id number] : 1975 F 42 From: Shemar Cano MD PCP: Walker Rodgers MD Status: REG CLI Study: Breast Limited Unilateral Date of Exam: 11/17/18 Exam# [id number] Ordering Dr: GUDELIA RG STUDY: ULTRASOUND BREAST - LEFT REASON FOR EXAM: Female, 42 years old. Left lateral breast pain. TECHNIQUE: Axial and longitudinal images of the LEFT breast were performed with a high resolution ultrasound transducer. COMPARISON: Comparison is made with prior mammogram done earlier in the day. FINDINGS: LEFT Breast: The lower outer quadrant of the left breast was examined by ultrasound. There is homogeneous fibroglandular tissue. No solid or cystic mass lesion is seen. The breast implant is visualized. US/Breast Limited Unilateral IMPRESSION: No sonographic abnormality is seen. ASSESSMENT CATEGORY: BIRADS Category 2: Benign. A letter regarding these results will be sent to the patient by the facility within 30 days. Electronically Signed: Shemar Cano MD at 15:50 EST Tel [phone], Service support , CC: Walker Rodgers MD; GUDELIA RG Vice President Mission Integration: Signed CNPN Observed: 11/16/2018 Status: COMPLETED Source: [place] 12:00 AM [facility] REPOSITORY Telephone (RGWSTR) VÍCTOR JUNIOR ([id number]) 1975 F Date Time Provider Department 11/16/18 TERRY NIX V RGWSTR During your visit today, we recorded the following information about you: Franko Marte PSR 11/16/2018 3:06 PM Signed Patient requests images from US/Diagnostic Mamm performed on 04/24/17. Ready for molded goods spot picker in the morning. She needs them for an appointment at 2PM tomorrow. Thanks Franko Marte PSR Kell Larkin Psr 11/16/2018 3:10 PM Signed cd is burning patient can molded goods spot picker cd a ccf marceamber between 8-5 Allergies As of Date: 11/16/2018 Noted Allergy Reaction CODEINE 02/03/2008 MORPHINE 07/24/2017 1 - Mental Status Change Comments: Violent PAXIL (PAROXETINE HCL) 11/21/2017 16 - Unknown Date Reviewed: 11/09/2018 Reviewed by: Gudelia Rg - Fully Assessed Reason for Visit: disk request [Other] Prescriptions as of 11/16/2018 Sig: JOHNNY ORAL Take by mouth. Problem List As Of Date 11/16/2018 Noted Resolved Other acne [L70.8] INVALID FOR*12/23/2014 Scar condition and fibrosis of skin [L90.5] INVALID FOR*12/23/2014 Seborrhea [L21.9] INVALID FOR*12/23/2014 Sebaceous cyst [L72.3] INVALID FOR*12/23/2014 Other chronic dermatitis due to solar radiation*INVALID FOR*12/23/2014 Depression [F32.9] INVALID FOR* Celiac disease (HCC) [K90.0] INVALID FOR* Pelvic pain in female [R10.2] INVALID FOR*12/23/2014 Bladder pain [R39.89] INVALID FOR*12/23/2014 Suprapubic pressure [R10.2] INVALID FOR*12/23/2014 Hematuria [R31.9] INVALID FOR*12/23/2014 Breast ptosis [N64.81] INVALID FOR*11/21/2017 Laxity of abdominal wall [R19.8] INVALID FOR* IBS (irritable bowel syndrome) [K58.9] Lipodystrophy [E88.1] INVALID FOR*11/21/2017 More... Encounter Status:Closed by FRANKO DUNBAR on 11/16/18 HOSP Observed: 11/06/2018 Status: COMPLETED Source: [place] 12:00 AM CLINIC OTHER CAMPUS REPOSITORY Patient:Víctor Junior MRN: <[id number]> Height:5' 4(1.626 m) Weight:172 lb (78.019 kg) Outpatient Medications as of 12/18/18: escitalopram oxalate (LEXAPRO) 20 mg tablet OTC PRODUCT multivitamin with iron (HAIR VITAMINS ORAL) FEXOFENADINE HCL (JOHNNY ORAL) Admission/Clinic Administered Medications as of 12/18/18: lidocaine 10 mg/mL (1 %) 1-2 mg injection (XYLOCAINE) lactated ringers infusion NaCl 0.9% 2-10 mL ceFAZolin iv piggyback 2 g in D5W (iso-osmotic) 100 mL (ANCEF) Problem List: Depression [F32.9] Celiac disease [K90.0] Breast ptosis [N64.81] Laxity of abdominal wall [R19.8] IBS (irritable bowel syndrome) [K58.9] Allergies: Codeine Morphine Paxil [Paroxetine Hcl] Date Verified: 12/18/18 Lab Values No results within the last 30 days for the following basenames: K,HCT No progress notes entered within the past 30 days PT D/C SUMMARY (1) Observed: 11/05/2018 Status: F Source: [place] 3:00 PM [facility] REPOSITORY [facility] Physical Therapy [facility] [address] [place] [address] Fax REHABILITATION SERVICES DISCHARGE SUMMARY MR#: [id number] Acct: [id number] Name: VÍCTOR JUNIOR Rep #: [id number] : 1975 42 From: Jeet Richmond PT, Cert. T, OCS Referring Dr.: Jairon Perdomo MD Status: REG RCR Insurance: [employer] SELF PAY INSURANCE HP - PT D/C Summary It has been my pleasure to treat VÍCTOR JUNIOR under orders from Amandeep Perdomo MD, for the diagnosis of BACK PAIN for a total of 7 visit(s). Discharge Date: 11/04/18 Please see the following information for a summary of their discharge status. - Subjective Subjective: Doing well ..no pain. Return to crossfit - Pain Bilateral Back Pain Intensity (Out of 10): 0 Bilateral Lower Extremity Pain Intensity (Out of 10): 0 - Overall Improvement % Improvement: 90 - Objective Objective/Function: POSTURE: WFL. GAIT: normal nestor. MMT: quads/hams/hip 4/5,ankle 5/5. LUMBAR ROM: WNL all planes. -SLR - Goals Goal 1:: Independant with HEP Goal Progress: Goal Met Goal 2:: Patient to be Independant with posture/body mechanics Goal Progress: Goal Met Goal 3:: Patient to decrease lumbar pain by 70% or greater to improve function Goal Progress: Goal Met Goal 4:: Patient to improve lumbar ROM for function of recovery Goal Progress: Goal Met Goal 5:: Patient to impove CANDY back score by 5 points to improve QOL. Goal Progress: Goal Met Goal 6:: Patient be able to return to prior level of function,ADL'S working out with min limiations Goal Progress: Goal Met - Plan Plan: D/C - D/C Information If there are questions or concerns regarding this patient's physical therapy, please feel free to call me at [phone]. Thank you for the referral of this patient. Sincerely, Jeet Richmond PT, <Electronically signed by Jeet Richmond PT, Cert. T, OCS> 11/05/18 1500 CC: Jairon Perdomo MD; Walker Rodgers MD JLKeanu Signed INITAL EVALUATION (1) Observed: 10/09/2018 Status: F Source: [place] - PT 5:05 PM [facility] REPOSITORY [facility] Physical Therapy [facility] [address] [place] [address] Fax REHABILITATION SERVICES INITIAL EVALUATION MR#: [id number] Acct: [id number] Name: VÍCTOR JUNIOR Rep #: [id number] : 1975 42 From: Jeet Richmond PT, Cert. T, OCS Referring Dr.: Jairon Perdomo MD Status: REG RCR Insurance: [employer] SELF PAY INSURANCE Patient's Visit Information VÍCTOR JUNIOR is a 42 year old F referred to Physical Therapy by Jairon Perdomo with a diagnosis of BACK PAIN. Date of Evaluation: 10/09/18 Physical Therapist: Jeet Richmond PT, - Visit Plan Frequency: 2x /Week Duration: 4 Weeks Plan: KIRT EX'S ,PROGRESS TO GRADE DLS,POSTURAL EX'S,MANUAL THERAPY,MODALTIES FOR PAIN RELEIVE - Subjective Subjective: This 42 y/o female presents to physical therapy back pain since July 2018. Patient symptoms onset in left side but centralized in lumbar . Symptoms aggraveted with crossfit fit activities. Patient symptoms becomae worse in August. Patient followed with MD then rcommended PT. Patient went ER 2days ago few days symptoms worse did tramadol. Patient seen chiropractor ,massage. Symptoms bending,lifting,sitting. Symptoms better with walking. Coughing/seezing +. Pain affects sleeping. Bowel/bladder good.No h/o back pain.Pain symtrical lumbar.Denies parathesia/tingling.Symptoms affects QOL and affect function. SOCIAL: single. VOCATION: [employer] - Pain Bilateral Back Pain Intensity (Out of 10): 2 Pain Intensity Range: 10 Bilateral Lower Extremity Pain Intensity (Out of 10): 0 Pain Intensity Range: 10 - Objective POSTURE: mild foward posture. GAIT: reciprocal pattern. NEURO: reflexes L3-4,L4-5,L5-S1 2/3,mytomes intact. MMT: quads/hams/hip 4/5 ,ankle 4/5. LUMBAR ROM: flexion mod/severe,mod/severe pain,side glides min loss. FLEXABLITY: min hams - Special Tests L/S Slump test left side: Positive L/S Slump test right side: Positive L/S Left Straight Leg Raise: Positive L/S Right Straight Leg Raise: Positive Lumbar Standing: Flexion - Mechanical Response: No effect Lumbar Standing: Flexion - Symptoms During Testing: Increases Lumbar Standing: Flexion - Symptoms After Testing: Worse Lumbar Standing: Extension - Mechanical Response: No effect Lumbar Standing: Extension - Symptoms During Testing: Increases Lumbar Standing: Extension - Symptoms After Testing: No worse Lumbar Standing: Right Side Glides - Mechanical Response: No effect Lumbar Standing: Right Side Crestline - Symptoms During Testing: No effect Lumbar Standing: Right Side Crestline - Symptoms After Testing: No effect Lumbar Standing: Left Side Crestline - Mechanical Response: No effect Lumbar Standing: Left Side Crestline - Symptoms During Testing: No effect Lumbar Standing: Left Side Crestline - Symptoms After Testing: No effect Lumbar Lying: Flexion - Mechanical Response: No effect Lumbar Lying: Flexion - Symptoms During Testing: Increases Lumbar Lying: Flexion - Symptoms After Testing: Worse Lumbar Lying: Extension - Mechanical Response: No effect Lumbar Lying: Extension - Symptoms During Testing: Centralizing Lumbar Lying: Extension - Symptoms After Testing: No worse - Goals Goal 1:: Independant with HEP Goal Time Frame: 4-6 Weeks Goal 2:: Patient to be Independant with posture/body mechanics Goal Time Frame: 4-6 Weeks Goal 3:: Patient to decrease lumbar pain by 70% or greater to improve function Goal Time Frame: 4-6 Weeks Goal 4:: Patient to improve lumbar ROM for function of recovery Goal Time Frame: 4-6 Weeks Goal 5:: Patient to impove CANDY back score by 5 points to improve QOL. Goal Time Frame: 4-6 Weeks Goal 6:: Patient be able to return to prior level of function,ADL'S working out with min limiations Goal Time Frame: 4-6 Weeks - Rehabilitation Potential Physical Therapy Diagnosis: This patient has central symmtrical derrangement with disc involvemnt with with poor flexion/extension ,better with REIL ,posture correction,walking ,worse with bending,sitting. Thus benifit from skilled PT. Rehabilitation Potential: Good - Anticipated Interventions Patient/Client Instruction: Educate patient on: Condition, Plan of Care For the Purpose of:: To decrease pain, To increase ROM, To improve muscle performance and motor function, To improve ability to perform ADL's, To increase tolerance to activity/condition/position, To improve ability of physical actions for home/community/work/leisure, To improve health of tissue, To decrease soft tissue restriction, To increase flexibility/ROM, To improve tolerance to ADL's Therapeutic Exercise to Include: Strength training, Postural training, Flexibilty training, Dynamic Lumbar Stabilization, Kirt Exercises For the Purpose of:: To decrease pain, To increase ROM, To improve muscle performance and motor function, To increase tolerance to activity/condition/position, To improve performance and independence with ADL's, To improve ability of physical actions for home/community/work/leisure, To improve health of tissue, To decrease soft tissue restriction, To increase flexibility/ROM, To improve ability to perform tasks related to life management Manual Therapy Techniques to Include: Mobilization Comment: LUMBAR For the Purpose of:: To decrease pain, To increase ROM, To improve health of tissue, To decrease soft tissue restriction, To improve ability to perform tasks related to life management TENS: Yes IF ES: Yes Cryotherapy (ice pack, ice massage): Yes Thermo therapy (hot pack): Yes Ultrasound (thermal/non thermal): Yes For the Purpose of:: To decrease pain, To decrease swelling/inflammation, To increase ROM, To improve health of tissue, To decrease soft tissue restriction Thank you for the opportunity to evaluate your patient. For Medicare and Medicare HMO plans, please review the plan of care and approve it. It will need to be FAXED BACK to us at [phone] for Medicare purposes. Please let me know if there are questions or concerns regarding this plan of care. Physician Signature: Date: <Electronically signed by Jeet Richmond PT, Cert. T, OCS> 10/09/18 0645 CC: Jairon Perdomo MD; Walker Rodgers MD KONRAD Signed For Medicare only, by signing this I certify the plan of care. Physicians Signature Date EMERGENCY DEPARTMENT Observed: 10/06/2018 Status: F Source: [place] SUMMARY 8:41 PM [facility] REPOSITORY [facility] Medical Records Department [address] [place] [address] Emergency Department Summary 10/06/182036 MR#: [id number] Acct: [id number] Name: VÍCTOR JUNIOR Rep #: [id number] : 1975 42 From: Michele Hanks MD PCP: Walker Rodgers MD Status: REG ER - ER Visit Summary Date of Service: 10/06/18 Chief Complaint: Back pain History of Present Illness: The patient is a 42 F with back pain for the past few weeks, had an x-ray done symptomatic by PCP, he examined her today and then she developed worse pain. She has no radiation. She has no bowel bladder compromise no urinary retention symptoms. She has no fever or chills. Physical Examination: Otherwise unremarkable exam, she has a soft abdomen with no suprapubic pain or mass. She has tenderness over the L5 and sacral region. This is midline pain. She has normal patellar and Achilles reflexes. She has normal plantar flexion of both feet normal dorsiflexion of both great toes. Emergency Department Course and Treatment: Patient will be treated with analgesia and discharged to follow- up with PCP she has no red flags. She will need physical therapy. Discharge stable condition Impression: Back pain This note was generated with [employer] dictation software. It may contain incorrect words, spelling, and punctuation that were not noted in review of the chart prior to signing ED Disposition - Plan for ED Patient: Disposition: Home or Assisted Living Chief Complaint: Back Instructions: ED Sprain Strain Lumbar Prescriptions: Hydrocodone Bitart/Apap 5-325 [[place] 5MG-325MG] 1 tab PO Q4H PRN PRN 2 Days #10 tab PRN Reason: Pain Referrals: Walker Rodgers MD [Primary Care Provider] - What to do if you have Problems For any increased pain, shortness of breath, bleeding, nausea or vomiting, chest pain, or any unexpected problems, contact your Primary Care Provider. Call [facility] ([phone]) or report to the closest Emergency Room. Call 911 if necessary. 10/06/182040 <Electronically signed by Michele Hanks MD> Date Michele Hanks MD Cosigner Signature (If Indicated): Date CC: Walker Rodgers MD L/S SPINE MIN 4 Observed: 09/30/2018 Status: F Source: [place] VIEWS 3:15 PM [facility] REPOSITORY [facility] Imaging Services [address] [place], [place] [address] [address] L/S Spine Min 4 Views MR#: [id number] Acct: [id number] Name: VÍCTOR JUNIOR Rep #: [id number] : 1975 F 42 From: Zion Hoyt MD PCP: Walker Rodgers MD Status: REG CLI Study: L/S Spine Min 4 Views Date of Exam: 09/30/18 Exam# [id number] Ordering Dr: Walker Rodgers MD STUDY: X-RAY - LUMBAR SPINE REASON FOR EXAM: Female, 42 years old. Pain TECHNIQUE: 5 view(s) of the lumbar spine were obtained. COMPARISON: None FINDINGS: Normal lumbar lordosis. There is no substantial scoliosis. There is a normal alignment of the vertebrae. Normal vertebral bodies and endplates. Normal disc space heights. The soft tissue structures are unremarkable. RAD/L/S Spine Min 4 Views IMPRESSION: Normal x-ray examination of the lumbar spine. Electronically Signed: César Hoyt MD at 15:23 EDT , Service support , CC: Walker Rodgers MD Vice President Mission Integration: Signed Observed: 08/25/2018 Status: F Source: [place] CULTURE, URINE 4:30 PM [facility] REPOSITORY Urine Culture ORGANISM 1: Mixed Gram Positive Organisms [place] Count <1000 MIX CULTURE Mixed contaminants. Submit a new specimen if indicated. Performed By: #### M100.0650 #### [facility] [address] [place], [address] GALLBLADDER Observed: 01/05/2018 Status: F Source: [place] 8:22 AM [facility] REPOSITORY [facility] Imaging Services [address] [place] [address] Gallbladder MR#: [id number] Acct: [id number] Name: VÍCTOR JUNIOR Rep #: [id number] : 1975 F 42 From: Shemar Cano MD PCP: Walker Rodgers MD Status: REG CLI Study: Gallbladder Date of Exam: 01/05/18 Exam# [id number] Ordering Dr: Walker Rodgers MD STUDY: ABDOMINAL ULTRASOUND - RIGHT UPPER QUADRANT REASON FOR VISIT: Female, 42 years old. Abdominal pain. TECHNIQUE: Ultrasound evaluation of the right upper quadrant was performed with real-time and static shultz-scale imaging. TECHNICAL QUALITY: Adequate. COMPARISON: None. FINDINGS: Liver: The liver measures 14.7 cm. There is normal echogenicity of the liver. The bile ducts are within normal limits. There is hepatic color flow. The direction of portal flow is hepatopetal. There is no demonstrated mass lesion. Gallbladder: Normal distended gallbladder. The gallbladder wall measures 2.4 mm. There is a negative sonographic Lorenz's sign. There is no pericholecystic fluid. There are no gallstones. Common Bile Duct (C.B.D.): The common bile duct measures 3.0 mm. Pancreas: Normal size of the head, body and tail of the pancreas. There is normal echogenicity of the pancreas. There is no demonstrated pancreatic mass or cyst. Right Kidney: Normal size of the right kidney. The right kidney measures 11.7 cm x 3.5 cm x 4.9 cm. Normal renal cortex. The right cortex measures 1.7 cm. There is no demonstrated renal mass or cyst. There is no right hydronephrosis. US/Gallbladder IMPRESSION: Normal right upper quadrant ultrasound examination. Electronically Signed: Shemar Cano MD at 15:53 EST Tel [phone], Service support , CC: Walker Rodgers MD Vice President Mission Integration: Signed ALLERGIES ALLERGIES DATE TYPE / CODE NAME / CODE REACTION SEVERITY SOURCE 10/06/2018 Drug codeine/[id number] Rash Unknown [place] Allergy/416 0(RXNORM) [facility] 783729([facility] ED CT) Repository 11/21/2017 DRUG PAROXETINE HCL UNKNOWN [address] [address]([facility] Repository ED CT) 07/24/2017 DRUG MORPHINE Mental Chg [address] [address]67650([facility] Repository ED CT) 02/03/2008 DRUG CODEINE [address] [address]([facility] Repository ED CT) ENCOUNTERS ENCOUNTERS ADMIT/DISCHARGE ACCOUNT ADMITTING ENCOUNTER LOCATION SOURCE NUMBER CLASS 12/18/2018/12/18/[id number] Other [place] Repository 12/14/2018/12/16/[id number] Main [place] Repository 11/17/2018 [id number] Ambulatory [facility] ing:OPBI Repository 11/04/2018/11/04/20 [id number] Ambulatory [address] ing:PT Repository 10/06/2018/10/06/20 [id number] Emergency [address] ing:ED Repository 09/30/2018 [id number] Ambulatory [facility] ing:MTRAD Repository 09/29/2018 [id number] Ambulatory [facility] ing:MASS Repository 08/25/2018 [id number] [facility] ing:LABSPEC Repository 01/05/2018 [id number] [facility] ing:US Repository PAYERS PAYERS ENCOUNTER GUARANTOR PAYER SUBSCRIBER SOURCE 11/17/2018 VÍCTOR JUDGE2 Primary VÍCTOR A Anoop [place] Insurance:ANTHEMPolic [place] Number: [id number] [address]Hgo: 330 [id number] Repository [phone] () Date:[id number] [place] [address]TF: 11/17/2018 Secondary NOT GIVENUNK [place] Insurance:SELF PAY [facility] Number: Effective Repository Date:2018-11-16 11/04/2018 VÍCTOR JUDGE2 Primary VÍCTOR A Anoop [place] Insurance:ANTHEMPolic [place]DOB: [place] Number: [id number] [address]Nyk: (330) [id number] Repository [phone] () Date:[id number] [id number] [place] [address]78[address]UO: 11/04/2018 Secondary NOT GIVENUNK [place] Insurance:SELF PAY [facility] Number: Effective Repository Date:2018-10-07 10/06/2018 VÍCTOR JUNIOR4502 Primary VÍCTOR A Anoop [place] Insurance:ANTHEMPolic [place]GHESDOB: [place] Number: [id number] Hospital 77[address]Hwn: [phone]) [id number] Repository [phone] () Date:9021-11-87XB [address], [place] [address]AS: 10/06/2018 Secondary NOT GIVENUNK [place] Insurance:SELF PAY [facility] Number: Effective Repository Date:2018-10-06 09/30/2018 VÍCTOR JUDGE2 Primary VÍCTOR A [place]oop [place] Insurance:ANTHEMPolic [place]DOB: [place] Number: [id number] Hospital 58[address]Vaz: [phone]) [id number] Repository [phone] (HP) Date:[id number] [address] [place] [address]HI: 09/30/2018 Secondary NOT GIVENUNK [place] Insurance:SELF PAY [facility] Number: Effective Repository Date:2018-09-30 09/29/2018 VÍCTOR JUDGE2 Primary NOT GIVENUNK Anoop [place] Insurance:SELF PAY [facility] [place] [facility] [address]Mou: [phone] Number: Effective Repository [phone] (HP) Date:2018-09-29 08/25/2018 VÍCTOR JUDGE2 Primary VÍCTOR A [place] Insurance:ANTHEMPolic [place] Number: [id number] Hospital [address]Wup: [phone]) [id number] Repository [phone] (HP) Date:0088-72-89UV [address], [place] [address]QC: 08/25/2018 Secondary NOT GIVENUNK [place] Insurance:SELF PAY [facility] Number: Effective Repository Date:2018-08-25 01/05/2018 Víctor Lindo2 Primary VÍCTOR JUNIORDOB: Anoop [place] Insurance:ANTHEMPolic [id number] [facility] [place] Number: Hospital [address]Jwi: [phone]) [id number] Repository [phone] (HP) Date:5824-44-42ON [address], [place] [address]DR: 01/05/2018 Secondary NOT GIVENUNK [place] Insurance:SELF PAY [facility] Number: Effective Repository Date:2018-01-01
--- OUTSIDE RECORDS SUMMARY | 2019-02-19 01:14 | XMS RPT_ITS | Clinical Summary ---
:1975 Author Organization [facility] Address [address] [place] [address] Phone Care Team Providers Name Role Phone Hannah Anthony N Unavailable Conditions or Problems Problem Name Problem Onset Status Entry Provider Comment Standard Annotate Code Date Date Description Radial tunnel 991889515 Active Long S Radial tunnel syndrome (SNOMED CT) 03/12 03/26 Tutu syndrome Cubital tunnel 57071811 Active Long S Cubital tunnel syndrome (SNOMED CT) 03/12 03/26 Tutu syndrome Pain in right 86141992 Active Long S Pain in elbow elbow (SNOMED CT) 03/12 03/26 Tutu Cervical 45698347 Active Long S Cervical radiculopathy (SNOMED CT) 03/12 03/12 Tutu radiculopathy Medications Medication Instructions Start Stop Generic Name NDC Provider Date Date FLUOXETINE HCL One tablet by FLUOXETINE HCL 96634217063 Hannah N 20 MG CAPS mouth daily 5 Anthony ETODOLAC 400 One tablet by ETODOLAC 54777522530 Hannah N MG TABS mouth twice 5 Anthony daily MIRALAX PACK 17 GRAMS ORAL POLYETHYLENE [id number] Hannah N DAILY 5 GLYCOL 3350 Anthony Medications Administered No information available. Allergies, Adverse Reactions, Alerts Allergy Name Reaction Description Start Date Severity Status Provider SHERRY JOLLEY Critical Active Hannah N Anthony CODEINE SULFATE GI UPSET Critical Active Hannah N Anthony Results Date Name Value Unit Range Flag Description Office Visit MEDS REVIEW Done Documentation of current medications (procedure) ORALTOBACUSE Never Tobacco smoking status NHIS SMOK STATUS Never smoker Tobacco use [facility] Plan of Care Type Date Detail Referral [facility], [address] [place] [address], [address] Referral [facility], [address] [place] [address], [address] Pending order EMG Pending order Nerve Conduction [...]
--- OUTSIDE RECORDS SUMMARY | 2019-02-19 01:14 | XMS RPT_ITS | Clinical Summary ---
:1975 Author Organization [facility] Address [address] [place] [address] Phone Care Team Providers Name Role Phone Long Cam Unavailable Conditions or Problems Problem Name Problem Onset Status Entry Provider Comment Standard Annotate Code Date Date Description Radial tunnel 627455864 Active Long S Radial tunnel syndrome (SNOMED CT) 03/12 03/26 Tutu syndrome Cubital tunnel 87120472 Active Long S Cubital tunnel syndrome (SNOMED CT) 03/12 03/26 Tutu syndrome Pain in right 53329890 Active Long S Pain in elbow elbow (SNOMED CT) 03/12 03/26 Tutu Cervical 17495679 Active Long S Cervical radiculopathy (SNOMED CT) 03/12 03/12 Tutu radiculopathy Medications Medication Instructions Start Stop Generic Name NDC Provider Date Date FLUOXETINE HCL One tablet by FLUOXETINE HCL 18380882124 Hannah N 20 MG CAPS mouth daily 5 Anthony ETODOLAC 400 One tablet by ETODOLAC 04099594825 Hannah N MG TABS mouth twice 5 Anthony daily MIRALAX PACK 17 GRAMS ORAL POLYETHYLENE [id number] Hannah N DAILY 5 GLYCOL 3350 Anthony [...] NHIS SMOK STATUS Never smoker Tobacco use [facility] Plan of Care Type Date Detail Referral [facility], [address] [place] [address], [phone] Referral [facility], [address] [place] [address], [address] Pending order EMG Pending order Nerve Conduction [...]
--- OUTSIDE RECORDS SUMMARY | 2019-02-19 01:14 | XMS RPT_ITS | Clinical Summary ---
:1975 Author Organization [facility] Address [address] [place] [address] Phone Care Team Providers Name Role Phone AnthonyHannah duncan N Unavailable Conditions or Problems Problem Name Problem Onset Status Entry Provider Comment Standard Annotate Code Date Date Description Radial tunnel 148451396 Active Long S Radial tunnel syndrome (SNOMED CT) 03/12 03/26 Tutu syndrome Cubital tunnel 04082243 Active Long S Cubital tunnel syndrome (SNOMED CT) 03/12 03/26 Tutu syndrome Pain in right 79735209 Active Long S Pain in elbow elbow (SNOMED CT) 03/12 03/26 Tutu Cervical 38081857 Active Long S Cervical radiculopathy (SNOMED CT) 03/12 03/12 Tutu radiculopathy Medications Medication Instructions Start Stop Generic Name NDC Provider Date Date FLUOXETINE HCL One tablet by FLUOXETINE HCL 18102428072 Hannah N 20 MG CAPS mouth daily 5 Anthony ETODOLAC 400 One tablet by ETODOLAC 49066993057 Hannah N MG TABS mouth twice 5 Anthony daily MIRALAX PACK 17 GRAMS ORAL POLYETHYLENE [id number] Hannah N DAILY 5 GLYCOL 3350 Anthony [...] NHIS SMOK STATUS Never smoker Tobacco use [facility] Plan of Care Type Date Detail Appointment 03:15 PM Long Cam, [facility], [address], [place], [address], Pending order EMG Pending order Nerve Conduction [...]
--- OUTSIDE RECORDS SUMMARY | 2019-02-19 01:14 | XMS RPT_ITS | Clinical Summary ---
:1975 Author Organization [facility] Address [address] [place] [address] Phone Care Team Providers Name Role Phone AnthonyHannah duncan N Unavailable Conditions or Problems Problem Name Problem Onset Status Entry Provider Comment Standard Annotate Code Date Date Description Radial tunnel 808621101 Active Long S Radial tunnel syndrome (SNOMED CT) 03/12 03/26 Tutu syndrome Cubital tunnel 11213098 Active Long S Cubital tunnel syndrome (SNOMED CT) 03/12 03/26 Tutu syndrome Pain in right 46412045 Active Long S Pain in elbow elbow (SNOMED CT) 03/12 03/26 Tutu Cervical 32187831 Active Long S Cervical radiculopathy (SNOMED CT) 03/12 03/12 Tutu radiculopathy Medications Medication Instructions Start Stop Generic Name NDC Provider Date Date FLUOXETINE HCL One tablet by FLUOXETINE HCL [id number] Hannah N 20 MG CAPS mouth daily 5 Anthony ETODOLAC 400 One tablet by ETODOLAC 10964363382 Hannah N MG TABS mouth twice 5 Anthony daily MIRALAX PACK 17 GRAMS ORAL POLYETHYLENE [id number] Hannah N DAILY 5 GLYCOL 3350 Anthony [...] Detail Referral [facility], [address] [place] [address], [address] Referral [facility], [address] [place] [address], [address] Pending order EMG Pending order Nerve Conduction [...]
== END ==
PROVIDERS: Family Provider Family Medicine; PCP Family Medicine
DX: N64.4 Mastodynia (principal); T85.43XD Leakage of breast prosthesis and implant, subsequent encounter
CPT/HCPCS: 76642; 77062; 77066; G0279

== ENCOUNTER → 2019-02-01 15:32 | Outpatient (CLI) | payer BC, SELFPAY ==
[2019-02-01 18:04] LABS: Anion Gap 10 (5-15); BUN 12 mg/dL (7-18); BUN/Creat Ratio 16.9 RATIO (10-20); Calcium,Total 8.7 mg/dL (8.5-10.1); Chloride 104 mmol/L (98-107); Creatinine, Serum 0.71 mg/dL (0.55-1.02); EST Glomerular Filtration Rate 96 mL/min (>60); Est Glom Filt Rate - Afr Amer 116 mL/min (>60); Glucose 77 mg/dL (74-106); Sodium Level 141 mmol/L (136-145)
== END ==
PROVIDERS: Family Provider Family Medicine; PCP Family Medicine; Referring Provider Family Medicine; Visit Provider Nurse Practitioner Family
DX: R63.1 Polydipsia (principal)
CPT/HCPCS: 36415; 80048; 87086; 87088; 87186

== ENCOUNTER → 2019-02-26 15:28 | Outpatient (CLI) | payer BC, SELFPAY ==
[2019-02-26 18:08] LABS: Absolute Lymphocyte Count 1.79 X10^3/ul (0.83-4.51); Absolute Neutrophil Count 2.2 X10^3/uL (2.0-7.7); Basophil# 0.02 X10^3/uL; Basophil% 0.4 % (0-1); Eosinophil# 0.14 X10^3/uL; Eosinophils% 3.1 % (0-5); Hematocrit 39.8 % (37-47); Hemoglobin 13.6 g/dl (12.0-15.0); Lymphocyte # 1.79 X10^3/ul (4.0); Lymphocyte % 39.4 % (19-41); Mean Corp Hgb Conc 34.2 g/gl (32-36); Mean Corpuscular Hgb 31.1 pg (27.0-32.0); Mean Corpuscular Volume 90.9 fL (81-99); Mean Platelet Vol. 11.1 fl (6.2-12.0); Monocyte# 0.37 X10^3/uL; Monocyte% 8.1 % (0-10); Neutrophil # 2.21 X10^3/uL (2.7-7.7); Neutrophil % 48.8 % (47-70); Platelet Count 219 K/mm3 (150-450); RBC Distribution Width CV 12.7 % (11.6-14.6); RBC Distribution Width SD 41.8 fl (35.1-43.9); Red Blood Count 4.38 M/mm3 (4.2-5.4); White Blood Count 4.5 K/mm3 (4.4-11.0)
[2019-02-26 18:12] LABS: POSITIVE COUNT NO; POSITIVE DIFFERENTIAL NO; POSITIVE MORPHOLOGY NO
[2019-02-26 18:29] LABS: Thyroid Stim Hormone (TSH) 1.59 uIU/mL (0.358-3.74)
[2019-02-26 18:30] LABS: Vitamin D,25 Hydroxy 20.4 ng/mL (29.95-100.01)
== END ==
PROVIDERS: Family Provider Family Medicine; PCP Family Medicine; Visit Provider Family Medicine
DX: R53.83 Other fatigue (principal)
CPT/HCPCS: 36415; 82306; 84443; 85025

== ENCOUNTER → 2019-12-16 15:55 | Outpatient (CLI) | payer BC, SELFPAY ==
--- NOTE | 2019-12-16 16:23 | BI_ITS ---
MAMMOGRAPHY - BILATERAL SCREENING REASON FOR EXAM: Female, 44 years old. Routine annual screening examination. PERTINENT HISTORY: Non-contributory. Bilateral breast implants. TECHNIQUE: Digital bilateral breast chantal (3D mammographic acquisition) in the CC and MLO projections. 2-D mediolateral oblique (MLO) and craniocaudad (CC) views of both breasts were obtained. CAD: Full Field Digital Mammography with Computer Added Detection was performed. COMPARISON: Comparison is made with prior study dated November 17, 2018. FINDINGS: Breast Composition: There are scattered areas of fibroglandular density. There are no dominant masses or suspicious calcifications. Stable appearance of the bilateral breast implants. No other significant abnormalities are identified. There has been no significant change since the prior study. BI/SCREEN MAMM (CAD) W/CHANTAL BILAT IMPRESSION: Stable bilateral screening mammogram. Yearly follow-up mammogram recommended. (A) ASSESSMENT CATEGORY: BIRADS Category 2: Benign. A letter regarding these results will be sent to the patient by the facility within 30 days. Approximately 10% of breast cancers are not detected by mammography. A normal mammogram should not delay biopsy of a clinically suspicious abnormality. [id number] Electronically Signed: Shemar Cano, at 8:48 EST , Service support ,
[2019-12-16 17:33] LABS: Absolute Lymphocyte Count 1.94 X10^3/uL (0.83-4.51); Absolute Neutrophil Count 3.1 X10^3/uL (2.0-7.7); Basophil# 0.03 X10^3/uL; Basophil% 0.5 % (0-1); Eosinophils% 3.5 % (0-5); Hematocrit 38.8 % (37-47); Hemoglobin 12.8 g/dL (12.0-15.0); Lymphocyte # 1.94 X10^3/ul (4.0); Lymphocyte % 33.5 % (19-41); Mean Corpuscular Hgb 30.3 pg (27.0-32.0); Mean Corpuscular Volume 91.7 fL (81-99); Monocyte# 0.47 X10^3/uL; Monocyte% 8.1 % (0-10); NRBC Flagged by Analyzer 0 % (0-5); Neutrophil # 3.14 X10^3/uL (2.7-7.7); Neutrophil % 54.2 % (47-70); Platelet Count 161 K/mm3 (150-450); RBC Distribution Width CV 12.8 % (11.6-14.6); RBC Distribution Width SD 42.5 fl (35.1-43.9); Red Blood Count 4.23 M/mm3 (4.2-5.4); White Blood Count 5.8 K/mm3 (4.4-11.0)
[2019-12-16 18:09] LABS: Vitamin D,25 Hydroxy 25.8 ng/mL (29.95-100.01)
[2019-12-16 18:20] LABS: ALB/GLOB Ratio 1.2 RATIO (0.9-2.4); AST(SGOT) 20 U/L (15-37); Alanine Aminotransfer ALT/SGPT 24 U/L (13-56); Albumin, Serum 3.7 g/dL (3.2-5.0); Alkaline Phosphatase 51 U/L (45-117); Anion Gap 6 (5-15); BUN 16 mg/dL (7-18); BUN/Creat Ratio 20.3 RATIO (10-20); Calcium,Total 8.8 mg/dL (8.5-10.1); Chloride 107 mmol/L (98-107); Cholesterol 159 mg/dL (200); Creatinine, Serum 0.79 mg/dL (0.55-1.02); EST Glomerular Filtration Rate 85 mL/min (>60); Est Glom Filt Rate - Afr Amer 103 mL/min (>60); Globulin 3.2 g/dL (2.2-4.2); Glucose 83 mg/dL (74-106); High Density Lipoprotein 65 mg/dL; Protein, Total 6.9 g/dL (6.4-8.2); Sodium Level 140 mmol/L (136-145); T4 Free Direct 0.86 ng/dL (0.76-1.46); Thyroid Stim Hormone (TSH) 1.49 uIU/mL (0.358-3.74); Triglycerides 87 mg/dL; Very Low Density Lipoprotein 17 mg/dL (5-40)
== END ==
PROVIDERS: Family Medicine; Family Provider Family Medicine; PCP Family Medicine; Referring Provider Family Medicine; Visit Provider Family Medicine
DX: Z12.31 Encounter for screening mammogram for malignant neoplasm of breast (principal); E03.9 Hypothyroidism, unspecified; E78.00 Pure hypercholesterolemia, unspecified; E55.9 Vitamin D deficiency, unspecified
CPT/HCPCS: 36415; 77063; 77067; 80053; 80061; 82306; 84439; 84443; 85025

== ENCOUNTER → 2020-07-25 09:27 | Outpatient (CLI) | payer BC, SELFPAY ==
[2020-08-01 04:52] LABS: HPV Reflexed? NOT INDICATED
== END ==
PROVIDERS: PCP Family Medicine; Referring Provider Family Medicine; Visit Provider Nurse Practitioner Adult Health
DX: Z01.419 Encounter for gynecological examination (general) (routine) without abnormal findings (principal)
CPT/HCPCS: 88175; G0145

== ENCOUNTER → 2020-09-26 16:40 | Outpatient (CLI) | payer BC, SELFPAY | PROVIDERS: PCP Family Medicine; Referring Provider Family Medicine; Visit Provider Family Medicine | DX: B34.9 Viral infection, unspecified (principal) | CPT/HCPCS: 87635; U0003 ==

== ENCOUNTER → 2020-12-14 16:54 | Outpatient (CLI) | payer BC, SELFPAY ==
[2020-12-14 18:50] LABS: Vitamin D,25 Hydroxy 35.5 ng/mL
== END ==
PROVIDERS: PCP Family Medicine; Visit Provider Family Medicine
DX: E55.9 Vitamin D deficiency, unspecified (principal)
CPT/HCPCS: 36415; 82306

== ENCOUNTER → 2021-04-06 16:07 | Outpatient (CLI) | payer BC, SELFPAY ==
[2021-04-06 17:31] LABS: Absolute Lymphocyte Count 1.67 X10^3/uL (0.83-4.51); Absolute Neutrophil Count 3.4 X10^3/uL (2.0-7.7); Basophil# 0.05 X10^3/uL; Basophil% 0.8 % (0-1); Eosinophil# 0.29 X10^3/uL; Eosinophils% 4.9 % (0-5); Hematocrit 42.7 % (37-47); Hemoglobin 14.4 g/dL (12.0-15.0); Lymphocyte # 1.67 X10^3/ul (0.83-4.51); Lymphocyte % 28.2 % (19-41); Mean Corp Hgb Conc 33.7 g/dL (32-36); Mean Corpuscular Hgb 30.5 pg (27.0-32.0); Mean Corpuscular Volume 90.5 fL (81-99); Mean Platelet Vol. 10.1 fl (6.2-12.0); Monocyte# 0.53 X10^3/uL; NRBC Flagged by Analyzer 0 % (0-5); Neutrophil # 3.37 X10^3/uL (2.7-7.7); Neutrophil % 56.9 % (47-70); Platelet Count 277 K/mm3 (150-450); RBC Distribution Width CV 12.4 % (11.6-14.6); RBC Distribution Width SD 41.4 fl (35.1-43.9); Red Blood Count 4.72 M/mm3 (4.2-5.4); White Blood Count 5.9 K/mm3 (4.4-11.0)
[2021-04-06 18:20] LABS: Vitamin D,25 Hydroxy 41.3 ng/mL
[2021-04-06 18:23] LABS: AST(SGOT) 20 U/L (15-37); Alanine Aminotransfer ALT/SGPT 31 U/L (13-56); Albumin, Serum 3.7 g/dL (3.2-5.0); Alkaline Phosphatase 63 U/L (45-117); Anion Gap 7 (5-15); BUN 15 mg/dL (7-18); BUN/Creat Ratio 18.1 RATIO (10-20); Calcium,Total 8.2 mg/dL (8.5-10.1); Chloride 108 mmol/L (98-107); Cholesterol 191 mg/dL (200); Creatinine, Serum 0.83 mg/dL (0.55-1.02); EST Glomerular Filtration Rate 80 mL/min (>60); Est Glom Filt Rate - Afr Amer 96 mL/min (>60); Globulin 3.6 g/dL (2.2-4.2); Glucose 81 mg/dL (74-106); High Density Lipoprotein 77 mg/dL; Potassium 3.7 mmol/L (3.5-5.1); Protein, Total 7.3 g/dL (6.4-8.2); Sodium Level 139 mmol/L (136-145); T4 Free Direct 0.73 ng/dL (0.76-1.46); Thyroid Stim Hormone (TSH) 2.98 uIU/mL (0.358-3.74); Triglycerides 139 mg/dL; Very Low Density Lipoprotein 28 mg/dL (5-40)
[2021-04-12 15:25] LABS: Anti-Thyroglobulin AB < 1.0 IU/mL (0.0-0.9); Thyroglobulin, Serum Qt. 13.7 ng/mL (1.5-38.5); Thyroid Peroxidase AB 10 IU/mL (0-34)
== END ==
PROVIDERS: Family Medicine; PCP Family Medicine; Referring Provider Family Medicine; Visit Provider Family Medicine
DX: R63.5 Abnormal weight gain (principal); R79.89 Other specified abnormal findings of blood chemistry; E55.9 Vitamin D deficiency, unspecified
CPT/HCPCS: 36415; 80053; 80061; 82306; 84432; 84439; 84443; 85025; 86376; 86800

== ENCOUNTER 2021-12-12 16:46 | Outpatient (CLI) | payer BC, SELFPAY | END 2021-12-12 23:59 | disposition short-term general hospital (02) | PROVIDERS: PCP Family Medicine; Referring Provider Family Medicine; Visit Provider Family Medicine | DX: B34.9 Viral infection, unspecified (principal) | CPT/HCPCS: 87635; U0003; U0005 ==

== ENCOUNTER → 2022-05-27 | Outpatient (CLI) | payer BC, SELFPAY ==
[2022-05-27 18:17] LABS: Absolute Lymphocyte Count 2.18 X10^3/uL (0.83-4.51); Absolute Neutrophil Count 7.3 X10^3/uL (2.0-7.7); Basophil# 0.06 X10^3/uL; Basophil% 0.6 % (0-1); Eosinophils% 1.9 % (0-5); Hematocrit 41.9 % (37-47); Hemoglobin 14.2 g/dL (12.0-15.0); Lymphocyte # 2.18 X10^3/ul (0.83-4.51); Lymphocyte % 21.1 % (19-41); Mean Corp Hgb Conc 33.9 g/dL (32-36); Mean Corpuscular Hgb 30.3 pg (27.0-32.0); Mean Corpuscular Volume 89.3 fL (81-99); Monocyte# 0.63 X10^3/uL; Monocyte% 6.1 % (0-10); NRBC Flagged by Analyzer 0 % (0-5); Neutrophil # 7.25 X10^3/uL (2.7-7.7); Platelet Count 306 K/mm3 (150-450); RBC Distribution Width CV 12.6 % (11.6-14.6); Red Blood Count 4.69 M/mm3 (4.2-5.4); White Blood Count 10.4 K/mm3 (4.4-11.0)
[2022-05-27 18:49] LABS: Vitamin D,25 Hydroxy 64.6 ng/mL
[2022-05-27 18:50] LABS: Erythrocyte Sedimentation Rate 20 mm/hr (0-30)
[2022-05-27 18:53] LABS: CRP 6.91 mg/L (0.0-3.0); Rheumatoid Factor < 10.0 IU/mL (<15); Thyroid Stim Hormone (TSH) 4.17 uIU/mL (0.358-3.74); Uric Acid 4.6 mg/dL (2.6-6.0)
[2022-05-29 17:40] LABS: ANTINUCLEAR ANTIBODIES DIRECT Negative (Negative)
== END | disposition home or self-care (01) ==
LOC: MFPLAB 16:59
PROVIDERS: PCP Family Medicine; Visit Provider Family Medicine
DX: M25.50 Pain in unspecified joint (principal); E55.9 Vitamin D deficiency, unspecified; R63.5 Abnormal weight gain
CPT/HCPCS: 36415; 82306; 84443; 84550; 85025; 85652; 86038; 86140; 86431

== ENCOUNTER → 2022-06-18 | Outpatient (CLI) | payer BC, SELFPAY ==
--- NOTE | 2022-06-18 15:19 | BI_ITS ---
MAMMOGRAPHY - BILATERAL SCREENING REASON FOR EXAM: Female, 46 years old. Routine annual screening examination. PERTINENT HISTORY: Non-contributory. Bilateral breast implants. TECHNIQUE: Digital bilateral breast chantal (3D mammographic acquisition) in the CC and MLO projections. 2-D mediolateral oblique (MLO) and craniocaudad (CC) views of both breasts were obtained. CAD: Full Field Digital Mammography with Computer Added Detection was performed. COMPARISON: Comparison is made with prior study 06/15/2020 and 11/17/2018. FINDINGS: Breast Composition: There are scattered areas of fibroglandular density. There are no dominant masses or suspicious calcifications. Stable appearance of the lateral breast implants. Stable benign appearing bilateral axillary lymph nodes. No other significant abnormalities are identified. There has been no significant change since the prior study. BI/SCRN MAMM (CAD)W/CHANTAL BILAT IMPRESSION: Stable bilateral screening mammogram. Yearly follow-up mammogram recommended. (A) ASSESSMENT CATEGORY: BIRADS Category 2: Benign. A letter regarding these results will be sent to the patient by the facility within 30 days. Approximately 10% of breast cancers are not detected by mammography. A normal mammogram should not delay biopsy of a clinically suspicious abnormality. [id number] Electronically Signed: Shemar Cano MD at 8:48 EDT ,
== END | disposition home or self-care (01) ==
LOC: OPBI 15:15
PROVIDERS: PCP Family Medicine
DX: Z12.31 Encounter for screening mammogram for malignant neoplasm of breast (principal)
CPT/HCPCS: 77063; 77067

== ENCOUNTER → 2022-07-19 | Outpatient (CLI) | payer BC, SELFPAY | END | disposition home or self-care (01) | LOC: MFPLAB 14:51 | PROVIDERS: PCP Family Medicine; Referring Provider Family Medicine; Visit Provider Family Medicine | DX: E03.9 Hypothyroidism, unspecified (principal) | CPT/HCPCS: 36415; 84443 ==

== ENCOUNTER → 2022-11-18 | Outpatient (CLI) | payer BC, SELFPAY ==
[2022-11-18 18:15] LABS: Free T3 2.2 pg/mL (2.18-3.98)
== END | disposition home or self-care (01) ==
LOC: MFPLAB 15:52
PROVIDERS: PCP Family Medicine; Visit Provider Family Medicine
DX: E03.9 Hypothyroidism, unspecified (principal)
CPT/HCPCS: 36415; 84481

== ENCOUNTER → 2022-11-21 | Outpatient (CLI) | payer BC, SELFPAY ==
[2022-11-21 12:54] LABS: Thyroid Stim Hormone (TSH) 0.95 uIU/mL (0.358-3.74)
== END | disposition home or self-care (01) ==
LOC: MFPLAB 11:18
PROVIDERS: PCP Family Medicine; Visit Provider Family Medicine
DX: E03.9 Hypothyroidism, unspecified (principal)
CPT/HCPCS: 36415; 84443

== ENCOUNTER → 2023-06-19 | Outpatient (CLI) | payer BC, SELFPAY ==
--- NOTE | 2023-06-19 14:55 | BI_ITS ---
MAMMOGRAPHY - BILATERAL SCREENING 3-D TOMOSYNTHESIS REASON FOR EXAM: Female, 47 years old. Routine screening PERTINENT HISTORY: No significant family history. Recent weight loss and previous removal of breast implants TECHNIQUE: 2-D mammograms and 3-D Tomosynthesis of the breast (s) were performed. CAD was performed. COMPARISON: 06/18/2022 FINDINGS: The breast composition is composed of scattered fibroglandular density. Scattered benign calcifications are seen. No dense spiculated masses or suspicious microcalcifications are identified. Stable architectural distortion from previous surgery due to implants. There is no skin thickening or retraction. There has been no significant change since the prior study. BI/SCRN MAMM (CAD)W/CHANTAL BILAT IMPRESSION: No mammographic signs of malignancy. Routine yearly mammograms recommended. ASSESSMENT CATEGORY: BIRADS Category 2: Benign. A letter regarding these results will be sent to the patient by the facility within 30 days. FOLLOW UP RECOMMENDATION: Yearly follow up mammogram recommended. (A) Approximately 10% of breast cancers are not detected by mammography. A normal mammogram should not delay biopsy of a clinically suspicious abnormality. Electronically Signed: César Hoyt MD at 15:38 EDT ,
== END | disposition home or self-care (01) ==
LOC: OPBI 14:54
PROVIDERS: PCP Family Medicine; Referring Provider Obstetrics & Gynecology; Visit Provider Obstetrics & Gynecology
DX: Z12.31 Encounter for screening mammogram for malignant neoplasm of breast (principal)
CPT/HCPCS: 77063; 77067

== ENCOUNTER 2023-08-29 14:30 | Outpatient (RCR) | payer BC, SELFPAY ==
--- NOTE | 2023-07-25 12:15 | HP.PTEVAL_ITS ---
Patient's Visit Information Visit Information Visit Information: VÍCTOR CARRERO is a 47 year old F referred to Physical Therapy by Dr. Marlena Dockery MD with a diagnosis of PF DYSFUNCTION W/ROSEMARIE AND URGE UI. Date of Evaluation: 07/25/23 Physical Therapist: Mireya Carrillo PT, Cert MDT Visit Plan Frequency: 1x/Week Duration: 2-4 Months Plan: MANUAL PF THERAPY FOR LENGTHENING/RELAXATION AND TRIGGER POINT RELEASE. PF STRENGTHENING. URINARY URGE EDUCATION. HEALTHY BLADDER HABIT EDUCATION. TRAINING IN COORDINATION OF PELVIC FLOOR MUSCULATURE WITH HIP AND CORE (TRANSVERSE ABDOMINUS) MUSCULATURE. APOLONIA LE ROM/STRETCHING. TRAINING IN ABDOMINAL CAVITY PRESSURE MGMT WITH ADL'S. 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 GOING TO GYM 5 DAYS A WK. HAS LOST 20 LBS Disability: NO Present symptoms: URINARY LEAKAGE Present since: ABOUT 6 YEARS AGO Pain Scale: N/A - DENIES PAIN Is it getting better, worse or staying the same: STAYING THE SAME Commenced as a result of: NO APPARENT REASON Symptoms at onset: JUST A LITTLE LEAKING WITH SNEEZING OR COUGHING. Worse: JUMPING, SNEEZING, COUGHING, LIFTING, SOMETIMES JUST GETTING UP FROM A CHAIR Better: NOTHING Disturbed sleep: GETTING UP TO URINATE 0-1 TIMES A NIGHT Previous history/Previous treatment: NO PRIOR TESTING OR TREATMENT Treatment this episode: PATIENT REPORTS TESTING SHOWING NORMAL BLADDER EMPTYING. NO MEDICATION PRESCRIBED. Coughing/sneezing/straining: POSITIVE FOR UI Gait: NORMAL How long can you delay the need to urinate: ABOUT AN HOUR Prolapse (Falling out feeling): NO Frequency of Urination: ABOUT EVERY 3-4 HOURS Ability to stop urine flow: YES Ability to initiate urine stream: YES Dyspareunia: N/A Bowel Incontinence: NO Accidents: NO Unexplained weight loss: NO Imaging: NO PMH/Recent major surgery: R HS INJURY ABOUT 3 YEARS AGO TREATED WITH PT AND DRY NEEDLING. LB INJURY YEARS AGO TREATED WITH PT HERE AT WITH LETI Colunga PT. Objective Objective: Sitting/Standing Posture: FAIR. ABLE TO FULLY CORRECT WITH CUEING. Other Observations: INDEP GAIT AND TRANSFERS. Sensory deficit: APOLONIA LE LIGHT TOUCH SENSATION INTACT AND SYMMETRICAL ROM deficit: TIGHT APOLONIA LE HS'S AND GASTROC-SOLEUS COMPLEX'S. APOLONIA HIP TIGHTNESS BUT ESPECIALLY L HIP INTERNAL ROT AND R HIP EXTERNAL ROTATION TIGHTNESS. APOLONIA HIP ADDUCTOR TIGHTNESS RIGHT > LEFT. Motor deficit: APOLONIA LE'S 5/5. PELVIC FLOOR STRENGTH 4/5. Dural Signs: NEGATIVE APOLONIA LE'S. Lumbar mvmt loss: flex - NIL ext - MIN R SG - MIN L SG - MIN PATIENT DENIES PAIN WITH LUMBAR ROM TESTING ALL PLANES. Core strength: FAIR Palpation: NO ACUTE LUMBAR TENDERNESS. INTERNAL VAGINAL PELVIC FLOOR PALPATION REVEALS PF TIGHTNESS WITH MULTIPLE TRIGGER POINTS BUT NO PAIN OR TENDERNESS REPORTED. FUNCTIONAL SCREEN: Incontinence Impact Questionnaire Score: 11 Urogenital Distress Inventory Score: 7 TREATMENT: INITIATED HEP WITH INSTRUCTION IN DIAPHRAGMATIC BREATHING FOR RELAXATION AND QUICK FLICK KEGELS. Goals Goal 1:: DECREASE URINARY LEAKING EPISODES TO ONE OR LESS A WEEK. Goal Time Frame: 8-12 Weeks Goal 2:: PATIENT WILL BE INDEP WITH A HEP FOR CONTINUED IMPROVEMENT ONCE FORMAL PHYSICAL THERAPY CONCLUDES. Goal Time Frame: 8-12 Weeks Anticipated Interventions Patient/Client Instruction: Educate patient on: Condition, Plan of Care and Risk Factors For the Purpose of:: To improve self management Therapeutic Exercise to Include: Strength training, Flexibilty training, Neuromotor development, Relaxation training and Biofeedback For the Purpose of:: To increase ROM, To improve muscle performance and motor function, To increase tolerance to activity/condition/position and To improve ability of physical actions for home/community/work/leisure Manual Therapy Techniques to Include: Trigger point massage and Soft tissue mobilization For the Purpose of:: To increase ROM and To improve muscle performance and motor function Text: Thank you for the opportunity to evaluate your patient. For Medicare and Medicare HMO plans, please review the plan of care and approve it. It will need to be FAXED BACK to us at [phone] for Medicare purposes. For Medicare only, by signing this I certify the plan of care. Please let me know if there are questions or concerns regarding this plan of care. Physician Signature: Date:
== END 2023-08-29 19:00 | disposition home or self-care (01) ==
LOC: PT 14:30
PROVIDERS: PCP Family Medicine; Referring Provider Urology; Visit Provider Urology
DX: K59.02 Outlet dysfunction constipation (principal)
CPT/HCPCS: 97162; 97530

== ENCOUNTER → 2023-11-21 | Outpatient (CLI) | payer BC, SELFPAY ==
[2023-11-25 15:07] LABS: Deamidated Gliadin IgA 6 units (0-19); Deamidated Gliadin IgG 2 units (0-19); Endomysial Antibody IgA Negative (Negative); Immunoglobulin A 185 mg/dL (87-352); t-Transglutaminase IgA <2 U/mL (0-3)
== END | disposition home or self-care (01) ==
LOC: MTLAB 12:57
PROVIDERS: PCP Family Medicine; Referring Provider Family Medicine; Visit Provider Family Medicine
DX: K90.0 Celiac disease (principal)
CPT/HCPCS: 36415; 82784; 83516; 86255

== ENCOUNTER → 2024-12-03 | Outpatient (CLI) | payer BC, SELFPAY ==
[2024-12-03 15:20] LABS: Absolute Lymphocyte Count 1.56 X10^3/uL (0.83-4.51); Absolute Neutrophil Count 2.8 X10^3/uL (2.0-7.7); Basophil# 0.04 X10^3/uL; Basophil% 0.8 % (0-1); Eosinophil# 0.13 X10^3/uL; Eosinophils% 2.7 % (0-5); Hematocrit 42.2 % (37-47); Hemoglobin 14.2 g/dL (12.0-15.0); Lymphocyte # 1.56 X10^3/ul (0.83-4.51); Lymphocyte % 32.5 % (19-41); Mean Corp Hgb Conc 33.6 g/dL (32-36); Mean Corpuscular Hgb 30.1 pg (27.0-32.0); Mean Corpuscular Volume 89.6 fL (81-99); Mean Platelet Vol. 9.9 fl (6.2-12.0); Monocyte# 0.31 X10^3/uL; Monocyte% 6.5 % (0-10); NRBC Flagged by Analyzer 0 % (0-5); Neutrophil # 2.75 X10^3/uL (2.7-7.7); Neutrophil % 57.3 % (47-70); Platelet Count 266 K/mm3 (150-450); RBC Distribution Width CV 12.8 % (11.6-14.6); RBC Distribution Width SD 42.6 fl (35.1-43.9); Red Blood Count 4.71 M/mm3 (4.2-5.4); White Blood Count 4.8 K/mm3 (4.4-11.0)
[2024-12-03 16:01] LABS: Ferritin 70 ng/mL (8-252); Iron 140 ug/dL (50-170); Iron Binding Capacity,Total 318 ug/dL (250-450); T4 Free Direct 0.96 ng/dL (0.76-1.46); Thyroid Stim Hormone (TSH) 0.857 uIU/mL (0.358-3.740)
== END | disposition home or self-care (01) ==
LOC: MFPLAB 13:31
PROVIDERS: PCP Family Medicine; Referring Provider Family Medicine; Visit Provider Family Medicine
DX: E03.9 Hypothyroidism, unspecified (principal); T14.8XXA Other injury of unspecified body region, initial encounter
CPT/HCPCS: 36415; 82728; 83540; 83550; 84439; 84443; 85025

== ENCOUNTER 2024-12-06 07:50 | Day surgery (SDC) | payer BC, SELFPAY ==
[2024-12-06 08:01] VITALS: BP 107/53; PULSE 66; RESP 18; TEMP 36.5; O2SAT 100; BMI 34.8
--- NOTE | 2024-12-06 08:03 | PRE.ANES_ITS ---
ASA Classification* ASA Classification ASA Classification: 2 Assessment & Plan Anesthesia* Anesthesia Assessment Anesthesia Assessment: Discussed sedation and/or anesthesia options, risks, benefits, and alternatives with patient/parents/legal guardian/POA. Questions invited. The patient/parents/legal guardian/POA seems to understand and agrees to proceed with anesthesia plan. Reviewed the physical assessment, medical history, allergy history and patient home medications list prior to surgery/procedure/anesthetic and documented any changes. Performed airway and anesthesia risk assessments. Anesthesia Type Anesthesia Type: MAC Anesthesia Focused Assessment* Airway Assessment Mouth opens: >3 cm Mallampati Score: II Focused Labs Anesthesia Preop lab: CBC WBC 4.8 K/mm3 (4.4-11.0) 12/03/24 13:31 RBC 4.71 M/mm3 (4.2-5.4) 12/03/24 13:31 Hgb 14.2 g/dL (12.0-15.0) 12/03/24 13:31 Hct 42.2 % (37-47) 12/03/24 13:31 Plt Count 266 K/mm3 (150-450) 12/03/24 13:31 CHEMISTRY Potassium 3.7 mmol/L (3.5-5.1) 04/06/21 16:08 Sodium 139 mmol/L (136-145) 04/06/21 16:08 BUN 15 mg/dL (7-18) 04/06/21 16:08 Creatinine 0.83 mg/dL (0.55-1.02) 04/06/21 16:08 Glucose 81 mg/dL (74-106) 04/06/21 16:08 TSH 0.857 uIU/mL (0.358-3.740) 12/03/24 13:31 COAG Urine Test Negative Negative 06/12/14 17:45 Pre-Assessment Diagnosis/Proposed Procedure Planned Operative Procedure(s): COLONOSCOPY Anesthesia History 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 When Was Last Pacemaker Check QUESTION #4 FULL TEXT: You/Your Family Experience fever (hyperthermia) with Anesthesia Last Oral Intake Last Oral intake: Last Oral Intake NPO since Meds taken in AM with sips of water? Meds patient instructed to take am of surgery PONV PONV - design cell engineer: PONV - design cell engineer Female Yes 11/30/24 14:20 HX of Motion Sickness No 11/30/24 14:20 HX of N/V After Surgery No 11/30/24 14:20 Non-Smoker Yes 11/30/24 14:20 Duration of Surgery greater No 11/30/24 14:20 than 60 minutes Number of Risk Factors 2 11/30/24 14:20 PONV Score Moderate Risk 11/30/24 14:20 Height & Weight Height & Weight: Anesthesia: Height & Weight Height 5 ft 4 in 10/21/24 14:58 Respiratory Assessment Respiratory Assessment - design cell engineer: Respiratory Tract Infection Hx - design cell engineer Hx Respiratory Tract Infection No 11/30/24 14:20 STOP Sleep Apnea STOP Sleep Apnea - design cell engineer: STOP Sleep Apnea - design cell engineer Hx Hypertension No 11/30/24 14:20 Hx Sleep Apnea No 11/30/24 14:20 CPAP No 11/30/24 14:20 BIPAP No 11/30/24 14:20 Do you snore loudly (louder No 11/30/24 14:20 than talking or can be heard Do you often feel tired/ No 11/30/24 14:20 fatigued/ sleepy during daytime? Has anyone observed you stop No 11/30/24 14:20 breathing during sleep? STOP Results Negative 11/30/24 14:20 QUESTION #5 FULL TEXT : Do you snore loudly (louder than talking or can be heard through closed doors)? 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 Specify any problems Hx of Preganancy in last 3 No 11/30/24 14:20 Months Nurse Filling Out Transfusion VCHRISTIN 11/30/24 14:20 & Questions: Date: 11/30/24 11/30/24 14:20 Time: 14:21 11/30/24 14:20 Patient unable to answer at this time (ie. confused, unrespo /Reproduction History /Reproductive History - design cell engineer: /Reproductive Hx- design cell engineer Hx Now No 11/30/24 14:20 Gestational Age (in weeks): EDC: Hx Hx Para Hx Section SAB No 11/30/24 14:20 [facility] Medical History Wears glasses Post-menopausal Depression Anxiety History of steroid therapy Thyroid disease Injury of back History of IBS Non-smoker Anxiety and depression History of breast implant removal History of endometrial biopsy Home Medications ?Medication ?Instructions ?Recorded ?Last Taken ?Type levothyroxine 50 mcg capsule 50 mcg PO DAILY 05/05/23 Unknown History Hydrocortisone 2.5%/lidocaine 5% #30 ea 10/21/24 Unknown Rx suppository (cmpd) cholecalciferol (vitamin D3) 25 25 mcg PO QDAY 10/21/24 Unknown History mcg (1,000 unit) capsule mecobalamin (vitamin B12) 1,000 1,000 mcg PO QDAY 10/21/24 Unknown History mcg chewable tablet sertraline 100 mg tablet 150 mg PO DAILY 11/30/24 Unknown History Allergy/AdvReac Type Severity Reaction Status Date / Time codeine Allergy Rash Verified 12/06/24 08:00 Opioids - Morphine Analogues AdvReac Intermediate Other Verified 12/06/24 08:00 paroxetine (From Paxil) AdvReac Mild Other Verified 11/30/24 14:12 Family History Mother Cancer cervical CAD (coronary artery disease) COPD (chronic obstructive pulmonary disease) Emphysema of lung Brother No problems noted. Grandfather Colon cancer Other Thyroid disorder Surgical History Hx of tubal ligation H/O breast augmentation Hx of abdominoplasty History of hysterectomy with oophorectomy Social History adopted: No number of children: 1 current occupational status: employed current occupation: [employer] leisure activities: exercise Smoking Status: Never smoker what type of physical activity do you participate in: weight training seatbelt use: always Review of Systems (Anesthesia) ROS Narrative System reviewed and no additional complaints, except as documented.
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
--- NOTE | 2024-12-06 08:45 | COLBX_PTH ---
PATIENT: VÍCTOR CARRERO LOC: EN U#:[id number] AGE/SX: 49/F ROOM: RE12/06/[address]: Dr. Antonella Rodríguez MD : 1975 BED: DIS: 12/06/2024 SPEC #: [id number] RECD: 12/06/24 14:21 STATUS: ZOË FAYE #: [id number] DEQUAN: 12/06/24 08:[address]: Antonella Rodríguez DEPT: SURGICAL PATHOLOGY RECD BY: Mylene Soto ENTERED: 12/07/24 10:46 SP TYPE: COLON BX OTHR DR: Rosetta Downs MD Tissues: Cecum, NOS Procedures: Surgery Specimen Level IV HEADER OPERATION: Colonoscopy with biopsy PRE-OP DIAGNOSIS: Screening for colon cancer TISSUE SUBMITTED: Ileocecal valve polyp biopsy MICROSCOPIC DIAGNOSIS Ileocecal Valve Polyp, Biopsy: 1. Tubular Adenoma 2. Colitis with activity (See Microscopic Description) MICROSCOPIC DESCRIPTION Slides are reviewed. Neutrophils within crypt epithelium. GROSS DESCRIPTION Received in fixative is one container labeled with the patient's name and designated Ileocecal valve polyp biopsy. The specimen consists of multiple irregular fragments of light rock soft tissue that in aggregate measure 1.0 x 0.5 x 0.2 cm. The specimen is totally submitted in one cassette. 12/07/2024 TC: 1 CPT:55067
[2024-12-06 09:12] VITALS: BP 107/53; BP 140/113; PULSE 66; RESP 16; TEMP 36.7; O2SAT 94
[2024-12-06 09:15] VITALS: BP 107/53; BP 90/56; PULSE 64; RESP 16; O2SAT 95
--- NOTE | 2024-12-06 09:18 | OP.COLON_ITS ---
Patient Name: Sharon Junior Procedure Date: 12/06/2024 8:34 AM Date of : 1975 Age: 49 Procedure: Colonoscopy Indications: Screening for colorectal malignant neoplasm Providers: Antonella Rodríguez MD Referring MD: Rosetta Downs Md Medicines: Monitored Anesthesia Care Patient Profile: This is a 49 year old female. Last Colonoscopy: none. The patient's first colonoscopy is today. Complications: No immediate complications. Procedure: Pre-Anesthesia Assessment: - Prior to the procedure, a History and Physical was performed, and patient medications and allergies were reviewed. The patient's tolerance of previous anesthesia was also reviewed. The risks and benefits of the procedure and the sedation options and risks were discussed with the patient. All questions were answered, and informed consent was obtained. Prior Anticoagulants: The patient has taken no anticoagulant or antiplatelet agents. ASA Grade Assessment: Per anesthesia. After reviewing the risks and benefits, the patient was deemed in satisfactory condition to undergo the procedure. After I obtained informed consent, the scope was passed under direct vision. Throughout the procedure, the patient's blood pressure, pulse, and oxygen saturations were monitored continuously. The pediatric colonoscope was introduced through the anus and advanced to the cecum, identified by the appendiceal orifice, ileocecal valve and palpation. The colonoscopy was performed without difficulty. The patient tolerated the procedure well. The quality of the bowel preparation was good. Scope In: 8:43:16 AM Scope Withdrawal Time 0 hours 14 minutes 33 seconds Scope Out: 9:05:47 AM Total Procedure Duration Time 0 hours 22 minutes 31 seconds Findings: The perianal and digital rectal examinations were normal. A less than 5 mm polyp was found in the ileocecal valve. The polyp was sessile. The polyp was removed with a cold biopsy forceps. Resection and retrieval were complete. The exam was otherwise without abnormality on direct and retroflexion views. Impression: - One less than 5 mm polyp at the ileocecal valve, removed with a cold biopsy forceps. Resected and retrieved. - The examination was otherwise normal on direct and retroflexion views. Recommendation: - Discharge patient to home. - Resume previous diet. - Continue present medications. - Await pathology results. - Repeat colonoscopy in 5 years for surveillance based on pathology results. Procedure Code(s): --- Professional --- 13265, PT, Colonoscopy, flexible; with biopsy, single or multiple Diagnosis Code(s): --- Professional --- Z12.11, Encounter for screening for malignant neoplasm of colon D12.0, Benign neoplasm of cecum CPT copyright 2021 [employer]. All rights reserved. The codes documented in this report are preliminary and upon marketing automation specialist review may be revised to meet current compliance requirements. MD Antonella Bowling MD 12/06/2024 9:17:34 AM This report has been signed electronically. Number of Addenda: 0 Note Initiated On: 12/06/2024 8:34 AM
--- NOTE | 2024-12-06 09:18 | OP.CCLET_ITS ---
12/06/2024 Rosetta Downs Md Re : Colonoscopy procedure for Sharon Reedke This procedure was performed on Friday, December 06, 2024. My impressions and recommendations are as follows: Impressions : - One less than 5 mm polyp at the ileocecal valve, removed with a cold biopsy forceps. Resected and retrieved. - The examination was otherwise normal on direct and retroflexion views. Recommendations : - Discharge patient to home. - Resume previous diet. - Continue present medications. - Await pathology results. - Repeat colonoscopy in 5 years for surveillance based on pathology results. My findings are described in the full procedure note, which is enclosed. If I can be of further assistance, please feel free to contact me at Doctor phone number(s): , Work: . Sincerely, MD Antonella Bowling MD 12/06/2024 9:17:34 AM This report has been signed electronically.
--- NOTE | 2024-12-06 09:19 | PCM.POST.ANE ---
Anesthesia: Postop Eval I Current Vital Signs Temperature: 98 F Pulse Rate: 16 Blood Pressure: 140/113 Respiratory Rate: 16 Pulse Ox: 96 Oxygen Delivery Method: Room Air Assessment Airway patent: Yes Spontaneous unlabored respirations: Yes Mental status: Awake and Calm nausea: No Vomiting: No Anesthesia Complication: No Fluid Hydration Crystalloid volume administer (ml): 65 Total IV fluid infused: 65 Progress Note Anesthesia document: Postop Eval 1 completed: Yes
[2024-12-06 09:20] VITALS: BP 107/53; BP 140/113; BP 98/63; PULSE 16; PULSE 62; RESP 16; TEMP 36.6; O2SAT 95; O2SAT 96
[2024-12-06 09:25] VITALS: BP 107/53; BP 99/56; PULSE 63; RESP 16; TEMP 36.8; O2SAT 96
[2024-12-06 09:36] VITALS: BP 107/53
--- NOTE | 2024-12-06 10:41 | PCM.POSTANE2 ---
Anesthesia Postop Eval I Sum Postop Eval Completion status Anesthesia document: Postop Eval 1 completed: Yes Anesthesia Postop Eval I Summary Anesthesia Postop Eval I Summary: Anesthesia Postop Eval I: Assessment Summary Airway patent Yes 12/06/24 09:20 [email or web address] Spontaneous unlabored Yes 12/06/24 09:20 [email or web address] respirations Mental status Awake,Calm 12/06/24 09:20 [email or web address] nausea No 12/06/24 09:20 [email or web address] Vomiting No 12/06/24 09:20 [email or web address] Anesthesia Postop Eval I: Fluid Summary Crystalloid volume administer 65 12/06/24 09:20 [email or web address] (ml) Colloids volume administered ( ml) Blood Product volume administered (ml) Total IV fluid infused 65 12/06/24 09:20 [email or web address] Anesthesia Postop Eval I: Summary Notes Anesthesia Complication No 12/06/24 09:20 [email or web address] Anesthesia Complication Comment: Post-operative progress note Anesthesia: Postop Eval II Evaluation Mental status: Awake Pain Level: 0 nausea: No Vomiting: No
== END 2024-12-06 09:51 | disposition home or self-care (01) ==
LOC: EN 07:51 → AC 07:52
PROVIDERS: PCP Family Medicine; Referring Provider Family Medicine; Visit Provider Surgery
PROC: 0DJD8ZZ Inspection of Lower Intestinal Tract, Via Natural or Artificial Opening Endoscopic (ICD-10-PCS; CPT 45378; principal; 2024-12-06 08:40)
DX: Z12.11 Encounter for screening for malignant neoplasm of colon (principal); D12.0 Benign neoplasm of cecum; K52.9 Noninfective gastroenteritis and colitis, unspecified; Z80.0 Family history of malignant neoplasm of digestive organs; K59.00 Constipation, unspecified; F41.9 Anxiety disorder, unspecified; F32.A Depression, unspecified; E07.9 Disorder of thyroid, unspecified; K90.0 Celiac disease; Z79.890 Hormone replacement therapy; Z79.899 Other long term (current) drug therapy
CPT/HCPCS: 45380; 88305; A4216; J2405

== ENCOUNTER 2025-09-27 15:30 | Outpatient (RCR) | payer BC, SELFPAY ==
[2025-09-06 13:08] VITALS: BP 98/66; PULSE 67; RESP 14; TEMP 35.9; BMI 36.6
--- NOTE | 2025-09-07 13:51 | WC ---
PHOTO-LEFT THIGH POST OP 09/06/25
--- NOTE | 2025-09-07 13:52 | WC ---
PHOTO-LEFT THIGH 09/06/25
--- NOTE | 2025-09-07 13:55 | WC ---
PHOTO-LEFT THIGH 09/06/25
--- NOTE | 2025-09-08 12:01 | PCM.WC.HP ---
History of Present Illness Date of Service: 09/06/25 Chief Complaint: Infected wounds of the left thigh related to a recent tattoo removal procedure History of Wound: This is a 49-year-old female who is generally healthy and active. She has multiple tattoos on various areas of her body. She has a longstanding tattoo of a large, black crucifix on her left lateral thigh. The patient made a recent decision to seek treatment for removal of this left lateral thigh tattoo. Approximately 3 weeks prior to her initial presentation, she underwent TEPR (trans-epidermal pigment release) at the site, which is a non-laser tattoo removal method that uses a proprietary solution and a handpiece with a sterile brush to create controlled abrasions, breakdown ink particles in the dermis, and facilitate the ink's release from the body via scabs. However, 4 days after the tattoo removal procedure the patient developed a cellulitis about the site, and sought evaluation by her primary care physician. She was placed on a course of oral cephalexin. When the cellulitis did not completely respond, the patient went to an urgent care center and was placed on doxycycline for a total of 7 days. She presented at this time for further evaluation and management of the resulting wounds on the left lateral thigh, and the residual cellulitic changes. The patient is generally healthy, citing hypothyroidism as a medical issue. She denies a history of myocardial infarction, congestive heart failure, hypertension, diabetes mellitus, cerebrovascular accident, pulmonary disease, and renal disease. She does not smoke tobacco products. [facility] Medical History Complicated open wound of left thigh Hypothyroidism Leg wound, left Extensive tattoos Wears glasses Post-menopausal Depression Anxiety History of steroid therapy Thyroid disease Injury of back History of IBS Non-smoker Anxiety and depression Home Medications ?Medication ?Instructions ?Recorded ?Last Taken ?Type levothyroxine 50 mcg capsule 50 mcg PO DAILY 05/05/23 Unknown History cholecalciferol (vitamin D3) 25 25 mcg PO QDAY 10/21/24 Unknown History mcg (1,000 unit) capsule mecobalamin (vitamin B12) 1,000 1,000 mcg PO QDAY 10/21/24 Unknown History mcg chewable tablet sertraline 100 mg tablet 150 mg PO DAILY 11/30/24 Unknown History tirzepatide (weight loss) 7.5 7.5 mg subcut QWEEK 09/06/25 Unknown History mg/0.5 mL subcutaneous pen injector (Zepbound) Allergy/AdvReac Type Severity Reaction Status Date / Time codeine Allergy Rash Verified 09/01/25 13:25 Opioids - Morphine Analogues AdvReac Intermediate Other Verified 09/01/25 13:25 paroxetine (From Paxil) AdvReac Mild Other Verified 09/01/25 13:25 Family History Mother Cancer cervical CAD (coronary artery disease) COPD (chronic obstructive pulmonary disease) Emphysema of lung Brother No problems noted. Grandfather Colon cancer Other Thyroid disorder Surgical History History of breast implant removal History of endometrial biopsy Hx of tubal ligation H/O breast augmentation Hx of abdominoplasty History of hysterectomy with oophorectomy Social History adopted: No number of children: 1 current occupational status: employed current occupation: [employer] leisure activities: exercise Smoking Status: Never smoker what type of physical activity do you participate in: weight training seatbelt use: always Vital Signs Vital Signs Vital Signs: Weight Weight: 213 lb Body Mass Index (BMI) 36.6 Physical Exam Const alert, oriented x3, no apparent distress, no limitations, healthy appearing and well nourished Constitutional Narrative: The patient's BMI is 36.6. General Appearance: cooperative, comfortable, well kempt and well developed Orientation / Consciousness: awake, oriented to person, oriented to place and oriented to time HEENT normocephalic and head/scalp atraumatic Head and Scalp: normal to inspection, normocephalic and atraumatic Face and Sinus: normal facial exam Nose: external nose normal External Ear: external ears normal Eyes EOMs intact bilaterally General Eye: normal appearance of both eyes Alignment: alignment normal Neck full ROM Resp normal respiratory effort, normal air movement, no retractions and no use of accessory muscles Effort and Inspection: able to speak in complete sentences Extremity no calf tenderness General Extremity: Negative for clubbing or cyanosis Skin Wound Narrative: A large black crucifix tattoo is noted on the patient's left lateral thigh. There are remnants of a recent attempt at tattoo removal, represented by numerous small, individual areas of eschar and necrosis. The presenting wounds are clustered, with an area of sahil gangrene and necrosis with surrounding erythema, suggesting the presence of cellulitis. The wounds in the area of suspected cellulitis appear to be full-thickness, extending through all layers of the dermis and into the subcutaneous tissues. Dimensions are documented elsewhere. Additionally, photographic images are included within the electronic record. Neuro oriented x3, CN's II-XII intact bilaterally, moves all extremities, no focal motor deficits and no sensory deficits noted Sensorium / Orientation: awake, alert, oriented to person, oriented to place and oriented to time Speech: speech normal Gait (Neuro): normal gait Psych Appearance: grossly normal and appropriate Attitude: calm Activity / Motor Behavior: appropriate eye contact Speech: normal speech Mood & Affect: euthymic mood Thought Process: normal thought process Thought Content: normal thought content Attention / Concentration: attention grossly intact Debridement Note Debridement Note Wound debrided: Left lateral thigh Laterality: Left Type of Debridement: Excisional debridement Anesthesia Used: 5% Lidocaine Gel and Cetacaine Depth: Down to and including healthy tissue and in the subcutaneous layer Percentage of wound debrided: 100 Instrument Used: 5mm curette, #15 blade and Forceps Tissue Removed: Gangrenous and necrotic tissue; slough Severity: Fat Layer Exposed Amount of bleeding with debridement: Mild Bleeding Controlled with: Compression and gauze Patient tolerated procedure: Patient tolerated procedure well Debridement Free Text: Following an excisional debridement, which was well-tolerated, swabs were obtained for aerobic and anaerobic bacterial growth. Additionally, it should be noted that the areas debrided where those of the cellulitic portion of the tattoo, as other areas of recent tattoo removal appear to be progressing normally, without evidence of infection. It appears as though the expectation is for the treated areas to slough spontaneously. Post-Debridement Measurements and Additional Note: Post-Debridement Measurements/Treatment BASHIR - Nurse 1 - General Ulcer Assessment Start: 09/06/25 13:08 Freq: Status: Active Protocol: [email or web address] Activity Type Activity Date Activity User E-sign Co-sign Detail Recorded Client Recorded Date Recorded By Document 09/06/25 13:08 ML [id number] 09/06/25 13:15 ML 09/06/25 13:08 - Today's Visit Information Type of service Initial Visit Arrival Mode Ambulatory Transfer Assistance None Patient Identification Verified (Name & Yes ) Patient Requires Transmission-Based No Precautions Height and Weight Height 5 ft 4 in Weight 213 lb Weight in Pounds 213.0 lbs Body Mass Index (BMI) 36.6 BMI Classification Obese Vital Signs Temperature (97.8 F-99.1 F) 96.6 F L Temperature Source Temporal Pulse Rate (60-100) 67 Pulse Location Monitor Respiratory Rate (12-18) 14 Respiratory rate source Observation Blood Pressure (90/60-120/80) 98/66 Blood Pressure Mean 76 Source Monitor Position Sitting Pain Scale: 0-10 Numeric Is Patient Pain Free? Yes - Nurse 1 - General Ulcer Measurement Start: 09/06/25 13:08 Freq: Status: Active Protocol: Activity Type Activity Date Activity User E-sign Co-sign Detail Recorded Client Recorded Date Recorded By Document 09/06/25 13:08 ML [id number] 09/06/25 13:15 ML 09/06/25 13:08 Wound Center Nurse 1 #1 LEFT THIGH -Current Size (cm) - Length 15 -Current Size (cm) - Width 14 -Current Size (cm) - Depth 0.2 -Total Square Cm 210 -Exudate Amt Medium -Granulation Amt Medium (34-66%) -Slough/Fibrin Yes -Necrosis Amt Medium (34-66%) -Necrotic Tissue Type Adherent Slough -Texture ([place]-wound Skin Appearance) Assessed -Moisture ([place]-wound Skin Appearance) Assessed -Color ([place]-wound Skin Appearance) Assessed -Temperature ([place]-wound Skin No Abnormality Appearance) (Pt Warm) -Tenderness on Palpation ([place]-wound Yes Skin Appearance) -Ulcer Cleansing Rinsed/ Irrigated with Saline -Foul Odor after Cleansing No -Anesthetic Used 4% Lidocaine Solution - Nurse 2 - General Ulcer CM Notes Start: 09/06/25 13:08 Freq: Status: Active Protocol: Activity Type Activity Date Activity User E-sign Co-sign Detail Recorded Client Recorded Date Recorded By Document 09/06/25 13:32 JF [id number] 09/06/25 13:53 JF 09/06/25 13:32 Wound Center Nurse 2 -Time 13:51 -Correct Patient Yes -Correct Side, Site, Position Yes -Correct Procedure Yes -Procedure Performed Yes -Type of Procedure Debridement -Clinical Debridement Subcutaneous -Tissue Removed Subcutaneous -Post Debridement (cm) - Length 6.5 -Post Debridement (cm) - Width 10 -Post Debridement (cm) - Depth 0.1 -Total Square (Post) (cm) 65.0 -Area of Debridement (cm) - Length 6.5 -Area of Debridement (cm) - Width 10 -Total Square (Area) (cm) 65.0 -Tunneling No -Undermining/Tunneling No -Circular Undermining No -Wound/Ulcer Outcome Not Healed -Ulcer Cleansing Rinsed/ Irrigated with Saline -Foul Odor after Cleansing No -Bioengineered Tissue No -Bleeding Controlled with Pressure -Treatment Response Procedure Tolerated Well -Offloading No -Debridement - Subq, 1st 20sq cm Yes -Debridement, SubQ, ea addt'l 20sq cm 4 or part thereof Pain Scale: 0-10 Numeric Is Patient Pain Free? Yes WC - Nurse 3 - General Ulcer D/C NN Start: 09/06/25 13:08 Freq: Status: Active Protocol: Activity Type Activity Date Activity User E-sign Co-sign Detail Recorded Client Recorded Date Recorded By Document 09/06/25 14:00 ML [id number] 09/06/25 14:01 ML 09/06/25 14:00 Wound Care Center Nurse 3 #1 LEFT THIGH -Ulcer Cleansing Rinsed/ Irrigated with Saline -Primary Dressing Applied Aquacel AG 4x4, Silicone Border Foam 6x6 -Aquacel AG 4x4 2 -Silicone Border Foam 6x6 1 Pain Scale: 0-10 Numeric Is Patient Pain Free? Yes Lab / Micro Data Micro: Microbiology 09/06/25 13:50 Wound - Other Gram Stain - Final 09/06/25 13:50 Wound - Other Wound Culture - Preliminary Staphylococcus aureus Alpha hemolytic organism Charges/Coding Procedures Integumentary Add On Codes: 93537 Alondra subq tissue add-on (92064 x 1; 61214 x 4) Multi Select Codes Visit Charges Office Visit/Consults: 34056 OV L4 New 45 min Integumentary Integumentary CPT Codes: 74978 Alondra subq tissue 20 sq cm/< Assessment/Plan Assessment/Plan (1) Complicated open wound of left thigh: CODE(S): S71.102A - Unspecified open wound, left thigh, initial encounter QUALIFIERS: Encounter type: initial encounter Qualified Code(s): S71.102A - Unspecified open wound, left thigh, initial encounter (2) Leg wound, left: CODE(S): S81.802A - Unspecified open wound, left lower leg, initial encounter QUALIFIERS: Encounter type: initial encounter Qualified Code(s): S81.802A - Unspecified open wound, left lower leg, initial encounter (3) Cellulitis of left leg: CODE(S): L03.116 - Cellulitis of left lower limb (4) Extensive tattoos: CODE(S): L81.8 - Other specified disorders of pigmentation (5) History of breast implant removal: CODE(S): Z98.86 - Personal history of breast implant removal (6) Hypothyroidism: CODE(S): E03.9 - Hypothyroidism, unspecified (7) Non-smoker: CODE(S): Z78.9 - Other specified health status (8) History of hysterectomy with oophorectomy: (9) Hx of abdominoplasty: CODE(S): Z98.890 - Other specified postprocedural states (10) H/O breast augmentation: CODE(S): Z98.82 - Breast implant status (11) Hx of tubal ligation: CODE(S): Z98.51 - Tubal ligation status (12) History of endometrial biopsy: CODE(S): Z92.89 - Personal history of other medical treatment PLAN: Plan This is a generally healthy 49-year-old female who has multiple tattoos at various sites on her body. A large, black tattoo on her left lateral thigh underwent attempts at initial tattoo removal approximately 3 weeks prior to the patient's presentation. The tattoo removal procedure resulted in an area of sahil Siska and gangrene, as well as cellulitis. The patient has recently been treated with 2 courses of oral antibiotic, including cephalexin and doxycycline. A sharp debridement of the frankly necrotic tissue been performed in the Wound Center today. Additionally, a swab has been obtained for aerobic and anaerobic bacterial cultures, the results of which will be awaited. We are to implement the use of Aquacel Ag topically to the clustered open wound. The Aquacel Ag is to be applied daily. The patient has been instructed in appropriate means of application and has been provided the product for use. Patient is to return in 1 week for reevaluation. Total time: 48 minutes
--- NOTE | 2025-09-09 13:48 | WC ---
received call from pt. stating she has not gotten her wound supplies yet. confirmed with [facility] that they do have the order and it will be shipped. VM left of pts phone of this information. instructed if hvae not received them by Friday to please call us back.
[2025-09-13 15:33] VITALS: BP 99/69; PULSE 75; RESP 18; TEMP 36.2; BMI 36.6
--- NOTE | 2025-09-14 14:34 | WC ---
PHOTO-LEFT THIGH 09/13/25
--- NOTE | 2025-09-15 11:51 | HP.PCM_ITS ---
History of Present Illness Date of Service: 09/13/25 Chief Complaint: Infected wounds of the left thigh related to a recent tattoo removal procedure History of Wound: This is a 49-year-old female who is generally healthy and active. She has multiple tattoos on various areas of her body. She has a alexis gstanding tattoo of a large, black crucifix on her left lateral thigh. The patient made a recent decision to seek treatment for removal of this left lateral thigh tattoo. Approximately 3 weeks prior to her initial presentation, she underwent TEPR (trans-epidermal pigment release) at the site, which is a non-laser tattoo removal method that uses a proprietary solution and a handpiece with a sterile brush to create controlled abrasions, breakdown ink particles in the dermis, and facilitate the ink's release from the body via scabs. However, 4 days after the tattoo removal procedure the patient developed a cellulitis about the site, and sought evaluation by her primary care physician. She was placed on a course of oral cephalexin. When the cellulitis did not completely respond, the patient went to an urgent care center and was placed on doxycycline for a total of 7 days. She presented to the [facility] for further evaluation and management of the resulting wounds on the left lateral thigh, and the residual cellulitic changes. The patient is generally healthy, citing hypothyroidism as a medical issue. She denies a history of myocardial infarction, congestive heart failure, hypertension, diabetes mellitus, cerebrovascular accident, pulmonary disease, and renal disease. She does not smoke tobacco products. ON LICENSE OF [facility] Medical History Complicated open wound of left thigh Hypothyroidism Leg wound, left Extensive tattoos Wears glasses Post-menopausal Depression Anxiety History of steroid therapy Thyroid disease Injury of back History of IBS Non-smoker Anxiety and depression Home Medications ?Medication ?Instructions ?Recorded ?Last Taken ?Type levothyroxine 50 mcg capsule 50 mcg PO DAILY 05/05/23 Unknown History cholecalciferol (vitamin D3) 25 25 mcg PO QDAY 4 Unknown History mcg (1,000 unit) capsule mecobalamin (vitamin B12) 1,000 1,000 mcg PO QDAY 10/02 12/24 Unknown History mcg chewable tablet sertraline 100 mg tablet 150 mg PO DAILY 11/30/24 Unk nown History tirzepatide (weight loss) 7.5 7.5 mg subcut QWEEK 06/24 Unknown History mg/0.5 mL subcutaneous pen injector (Zepbound) amoxicillin 500 mg-potassium 1 tab PO Q12H Wound Infec tion #20 09/12/25 Unknown Rx clavulanate 125 mg tablet tabs (Augmentin) Allergy/AdvReac Type Severity Reaction Status Date / Time codeine Allergy Rash Verified 09/01/25 13:25 Opioids - Morphine Analogues AdvReac Intermediate Other Verified 09/01/25 13:25 paroxetine (From Paxil) AdvReac Mild Other Verified 09/01/25 13:25 Family History Mother Cancer cervical CAD (coronary artery disease) COPD (chronic obstructive pulmonary disease) Emphysema of lung Brother No problems noted. Grandfather Colon cancer Other Thyroid disorder Surgical History History of breast implant removal History of endometrial biopsy Hx of tubal ligation H/O breast augmentation Hx of abdominoplasty History of hysterectomy with oophorectomy Social History adopted: No number of children: 1 current occupational status: employed current occupation: [employer] leisure activities: exercise Smoking Status: Never smoker what type of physical activity do you participate in: weight training seatbelt use: always Vital Signs Vital Signs Vital Signs: Weight Weight: 213 lb Body Mass Index (BMI) 36.6 Physical Exam Const alert, oriented x3, no apparent distress, no limitations, healthy appearing and well nourished Constitutional Narrative: The patient's BMI is 36.6. General Appearance: cooperative, comfortable, well kempt and well developed Orientation / Consciousness: awake, oriented to person, oriented to place and oriented to time HEENT normocephalic and head/scalp atraumatic Head and Scalp: normal to inspection, normocephalic and atraumatic Face and Sinus: normal facial exam Nose: external nose normal External Ear: external ears normal Eyes EOMs intact bilaterally General Eye: normal appearance of both eyes Alignment: alignment normal Neck full ROM Resp normal respiratory effort, normal air movement, no retractions and no use of accessory muscles Effort and Inspection: able to speak in complete sentences Extremity no calf tenderness General Extremity: Negative for clubbing or cyanosis Skin Wound Narrative: A large black crucifix tattoo is noted on the patient's left lateral thigh. There are remnants of a recent attempt at tattoo removal, represented by numerous small, individual areas of eschar and necrosis. The presenting wounds are clustered, with surrounding erythema, suggesting the presence of cellulitis. The wounds in the area of suspected cellulitis appear to be full-thickness, extending through all layers of the dermis and into the subcutaneous tissues. Dimensions are documented elsewhere. Slough and devitalized tissue are present. Photographic images are embedded in the electronic record. Neuro oriented x3, CN's II-XII intact bilaterally, moves all extremities, no focal motor deficits and no sensory deficits noted Sensorium / Orientation: awake, alert, oriented to person, oriented to place and oriented to time Speech: speech normal Gait (Neuro): normal gait Psych Appearance: grossly normal and appropriate Attitude: calm Activity / Motor Behavior: appropriate eye contact Speech: normal speech Mood & Affect: euthymic mood Thought Process: normal thought process Thought Content: normal thought content Attention / Concentration: attention grossly intact Debridement Note Debridement Note Wound debrided: Left lateral thigh Laterality: Left Type of Debridement: Excisional debridement Anesthesia Used: 5% Lidocaine Gel and Cetacaine Depth: Down to and including healthy tissue and in the subcutaneous layer Percentage of wound debrided: 100 Instrument Used: 5mm curette Tissue Removed: Slough and devitalized tissue Severity: Fat Layer Exposed Amount of bleeding with debridement: Mild Bleeding Controlled with: Compression and gauze Patient tolerated procedure: Patient tolerated procedure well Post-Debridement Measurements and Additional Note: Post-Debridement Measurements/Treatment - Nurse 1 - General Ulcer Assessment Start: 09/06/25 13:08 Freq: Status: Active Protocol: [email or web address] Activity Type Activity Date Activity User E-sign Co-sign Detail Recorded Client Recorded Date Recorded By Document 09/06/25 13:08 ML [id number] 09/06/25 13:15 ML Document 09/13/25 15:33 RB [id number] 09/13/25 15:35 RB 09/06/25 09/13/25 13:08 15:33 - Today's Visit Information Type of service Initial Visit Follow-up Visit (Physician/[employer] AND [employer] ATTENDANT ) Arrival Mode Ambulatory Ambulatory Transfer Assistance None None Patient Identification Verified (Name & Yes Yes ) Patient Requires Transmission-Based No No Precautions Height and Weight Height 5 ft 4 in Weight 213 lb Weight in Pounds 213.0 lbs Body Mass Index (BMI) 36.6 36.6 BMI Classification Obese Obese Vital Signs Temperature (97.8 F-99.1 F) 96.6 F L 97.2 F L Temperature Source Temporal Temporal Pulse Rate (60-100) 67 75 Pulse Location Monitor Monitor Respiratory Rate (12-18) 14 18 Respiratory rate source Observation Observation Blood Pressure (90/60-120/80) 98/66 99/69 Blood Pressure Mean 76 79 Source Monitor Monitor Position Sitting Semi-Fowlers Blood Pressure Location Left Arm History Since Last Visit- (Skip if this is Patient's initial visit) Have you changed medications since your No last visit? Any new allergies or adverse reactions No Had a fall/change in ADL's that may No increase risk of falls Signs or symptoms of abuse and/or No neglect since last visit Have you been in the hospital since your No last visit? Has dressing in place as prescribed Yes Has compression in place as prescribed N/A Has offloadiing in place as prescribed N/A Experienced any changes in pain level or No management Pain Scale: 0-10 Numeric Is Patient Pain Free? Yes Yes WC - Nurse 1 - General Ulcer Measurement Start: 09/06/25 13:08 Freq: Status: Active Protocol: Activity Type Activity Date Activity User E-sign Co-sign Detail Recorded Client Recorded Date Recorded By Document 09/06/25 13:08 ML [id number] 09/06/25 13:15 ML Document 09/13/25 15:33 RB [id number] 09/13/25 15:35 RB 09/06/25 09/13/25 13:08 15:33 Wound Center Nurse 1 #1 LEFT THIGH -Combined with other wound No -Current Size (cm) - Length 15 5.2 -Current Size (cm) - Width 14 5.6 -Current Size (cm) - Depth 0.2 0.1 -Total Square Cm 210 29.12 -Photo Taken Yes -Tunneling No -Undermining/Tunneling No -Circular Undermining No -Exudate Amt Medium Medium -Exudate Type Serosanguineous -Wound Margin Distinct, Outline Attached -Granulation Amt Medium (34-66%) Medium (34-66%) -Granulation Quality [place] -Slough/Fibrin Yes Yes -Necrosis Amt Medium (34-66%) Small (1-33%) -Necrotic Tissue Type Adherent Slough Adherent Slough -Structure Exposed N/A -Texture ([place]-wound Skin Appearance) Assessed Assessed, Scarring -Moisture ([place]-wound Skin Appearance) Assessed Assessed -Color ([place]-wound Skin Appearance) Assessed Assessed -Temperature ([place]-wound Skin No Abnormality No Abnormality Appearance) (Pt Warm) (Pt Warm) -Tenderness on Palpation ([place]-wound Yes No Skin Appearance) -Ulcer Cleansing Rinsed/ Wound Cleanser Irrigated with Saline -Foul Odor after Cleansing No No -Anesthetic Used 4% Lidocaine 5% Lidocaine Solution Gel WC - Nurse 2 - General Ulcer CM Notes Start: 09/06/25 13:08 Freq: Status: Active Protocol: Activity Type Activity Date Activity User E-sign Co-sign Detail Recorded Client Recorded Date Recorded By Document 09/06/25 13:32 [id number] 09/06/25 13:53 Document 09/13/25 16:03 DS [id number] 09/13/25 16:06 DS 09/06/25 09/13/25 13:32 16:03 Wound Center Nurse 2 #1 LEFT THIGH -Time 13:51 16:03 -Correct Patient Yes Yes -Correct Side, Site, Position Yes Yes -Correct Procedure Yes Yes -Procedure Performed Yes Yes -Type of Procedure Debridement Debridement -Clinical Debridement Subcutaneous Subcutaneous -Tissue Removed Subcutaneous Subcutaneous -Post Debridement (cm) - Length 6.5 5.0 -Post Debridement (cm) - Width 10 3.5 -Post Debridement (cm) - Depth 0.1 0.1 -Total Square (Post) (cm) 65.0 17.50 -Area of Debridement (cm) - Length 6.5 5.0 -Area of Debridement (cm) - Width 10 3.5 -Total Square (Area) (cm) 65.0 17.50 -Tunneling No No -Undermining/Tunneling No No -Circular Undermining No No -Wound/Ulcer Outcome Not Healed Not Healed -Ulcer Cleansing Rinsed/ gauze Irrigated with Saline -Foul Odor after Cleansing No No -Bioengineered Tissue No No -Bleeding Controlled with Pressure Pressure -Treatment Response Procedure Procedure Tolerated Well Tolerated Well -Offloading No -Debridement - Subq, 1st 20sq cm Yes Yes -Debridement, SubQ, ea addt'l 20sq cm 4 or part thereof Pain Scale: 0-10 Numeric Is Patient Pain Free? Yes Yes - Nurse 3 - General Ulcer D/C NN Start: 09/06/25 13:08 Freq: Status: Active Protocol: Activity Type Activity Date Activity User E-sign Co-sign Detail Recorded Client Recorded Date Recorded By Document 09/06/25 14:00 ML [id number] 09/06/25 14:01 ML Document 09/13/25 16:11 RB [id number] 09/13/25 16:12 RB 09/06/25 09/13/25 14:00 16:11 Wound Care Center Nurse 3 #1 LEFT THIGH -Ulcer Cleansing Rinsed/ Rinsed/ Irrigated with Irrigated with Saline Saline -Primary Dressing Applied Aquacel AG 4x4, Aquacel AG 4x4, Silicone Border Silicone Border Foam 6x6 Foam 6x6 -Aquacel AG 4x4 2 1 -Silicone Border Foam 6x6 1 1 Treatment Response Procedure Tolerated Well Pain Scale: 0-10 Numeric Is Patient Pain Free? Yes Yes - Visit Discharge Discharge Condition Stable Ambulatory Status Ambulatory Transportation Private Auto Medication Reconcilliation completed & No provided to patient/care provider Clinical Summary of Care Provided Yes Charges/Coding Procedures Integumentary [id number]: [id number] Alondra subq tissue 20 sq cm/< Assessment/Plan Assessment/Plan (1) Complicated open wound of left thigh: CODE(S): S71.102A - Unspecified open wound, left thigh, initial encounter QUALIFIERS: Encounter type: subsequent encounter Qualified Code(s): S71.102D - Unspecified open wound, left thigh, subsequent encounter (2) Leg wound, left: CODE(S): S81.802A - Unspecified open wound, left lower leg, initial encounter QUALIFIERS: Encounter type: subsequent encounter Qualified Code(s): S81.802D - Unspecified open wound, left lower leg, subsequent encounter (3) Cellulitis of left leg: CODE(S): L03.116 - Cellulitis of left lower limb (4) Extensive tattoos: CODE(S): L81.8 - Other specified disorders of pigmentation (5) History of breast implant removal: CODE(S): Z98.86 - Personal history of breast implant removal (6) Hypothyroidism: CODE(S): E03.9 - Hypothyroidism, unspecified (7) Non-smoker: CODE(S): Z78.9 - Other specified health status (8) History of hysterectomy with oophorectomy: (9) Hx of abdominoplasty: CODE(S): Z98.890 - Other specified postprocedural states (10) H/O breast augmentation: CODE(S): Z98.82 - Breast implant status (11) Hx of tubal ligation: CODE(S): Z98.51 - Tubal ligation status (12) History of endometrial biopsy: CODE(S): Z92.89 - Personal history of other medical treatment PLAN: Plan This is a generally healthy 49-year-old female who has multiple tattoos at various sites on her body. A large, black tattoo on her left lateral thigh underwent attempts at initial tattoo removal approximately 3 weeks prior to the patient's presentation. The tattoo removal procedure resulted in an area of sahil necrosis and gangrene, as well as cellulitis. The patient had recently been treated with 2 courses of oral antibiotic, including cephalexin and doxycycline. Debridement has been performed in the Wound Center today. Additionally, a swab was obtained for aerobic and anaerobic bacterial growth last week, results of which were positive for Staphylococcus aureus and Streptococcus sanguinis. The patient is to be placed on Augmentin 500/125 every 12 hours for total of 10 days. We are to continue the use of moistened Aquacel Ag topically to the clustered open wound. The Aquacel Ag is to be applied daily. The patient has been instructed in appropriate means of application and has been provided the product for use. The patient is to return in 1 week for reevaluation. Total time: 26 minutes
[2025-09-20 15:43] VITALS: BP 100/60; PULSE 74; RESP 16; TEMP 36; BMI 36.6
--- NOTE | 2025-09-21 09:10 | WC ---
PHOTO-LEFT THIGH 09/20/25
--- NOTE | 2025-09-22 16:54 | HP.PCM_ITS ---
History of Present Illness Date of Service: 09/20/25 Chief Complaint: Infected wounds of the left thigh related to a recent tattoo removal procedure History of Wound: This is a 49-year-old female who is generally healthy and active. She has multiple tattoos on various areas of her body. She has a alexis gstanding tattoo of a large, black crucifix on her left lateral thigh. The patient made a recent decision to seek treatment for removal of this left lateral thigh tattoo. Approximately 3 weeks prior to her initial presentation, she underwent TEPR (trans-epidermal pigment release) at the site, which is a non-laser tattoo removal method that uses a proprietary solution and a handpiece with a sterile brush to create controlled abrasions, breakdown ink particles in the dermis, and facilitate the ink's release from the body via scabs. However, 4 days after the tattoo removal procedure the patient developed a cellulitis about the site, and sought evaluation by her primary care physician. She was placed on a course of oral cephalexin. When the cellulitis did not completely respond, the patient went to an urgent care center and was placed on doxycycline for a total of 7 days. She presented to the [facility] for further evaluation and management of the resulting wounds on the left lateral thigh, and the residual cellulitic changes. The patient is generally healthy, citing hypothyroidism as a medical issue. She denies a history of myocardial infarction, congestive heart failure, hypertension, diabetes mellitus, cerebrovascular accident, pulmonary disease, and renal disease. She does not smoke tobacco products. COUNTS INCLUDE 234 BEDS AT THE [facility] Medical History Complicated open wound of left thigh Hypothyroidism Leg wound, left Extensive tattoos Wears glasses Post-menopausal Depression Anxiety History of steroid therapy Thyroid disease Injury of back History of IBS Non-smoker Anxiety and depression Home Medications ?Medication ?Instructions ?Recorded ?Last Taken ?Type levothyroxine 50 mcg capsule 50 mcg PO DAILY 05/05/23 Unknown History cholecalciferol (vitamin D3) 25 25 mcg PO QDAY 4 Unknown History mcg (1,000 unit) capsule mecobalamin (vitamin B12) 1,000 1,000 mcg PO QDAY 10/02 12/24 Unknown History mcg chewable tablet sertraline 100 mg tablet 150 mg PO DAILY 11/30/24 Unk nown History tirzepatide (weight loss) 7.5 7.5 mg subcut QWEEK 06/24 Unknown History mg/0.5 mL subcutaneous pen injector (Zepbound) amoxicillin 500 mg-potassium 1 tab PO Q12H Wound Infec tion #20 09/12/25 Unknown Rx clavulanate 125 mg tablet tabs (Augmentin) Allergy/AdvReac Type Severity Reaction Status Date / Time codeine Allergy Rash Verified 09/01/25 13:25 Opioids - Morphine Analogues AdvReac Intermediate Other Verified 09/01/25 13:25 paroxetine (From Paxil) AdvReac Mild Other Verified 09/01/25 13:25 Family History Mother Cancer cervical CAD (coronary artery disease) COPD (chronic obstructive pulmonary disease) Emphysema of lung Brother No problems noted. Grandfather Colon cancer Other Thyroid disorder Surgical History History of breast implant removal History of endometrial biopsy Hx of tubal ligation H/O breast augmentation Hx of abdominoplasty History of hysterectomy with oophorectomy Social History adopted: No number of children: 1 current occupational status: employed current occupation: [employer] leisure activities: exercise Smoking Status: Never smoker what type of physical activity do you participate in: weight training seatbelt use: always Vital Signs Vital Signs Vital Signs: Weight Weight: 213 lb Body Mass Index (BMI) 36.6 Physical Exam Const alert, oriented x3, no apparent distress, no limitations, healthy appearing and well nourished Constitutional Narrative: The patient's BMI is 36.6. General Appearance: cooperative, comfortable, well kempt and well developed Orientation / Consciousness: awake, oriented to person, oriented to place and oriented to time HEENT normocephalic and head/scalp atraumatic Head and Scalp: normal to inspection, normocephalic and atraumatic Face and Sinus: normal facial exam Nose: external nose normal External Ear: external ears normal Eyes EOMs intact bilaterally General Eye: normal appearance of both eyes Alignment: alignment normal Neck full ROM Resp normal respiratory effort, normal air movement, no retractions and no use of accessory muscles Effort and Inspection: able to speak in complete sentences Extremity no calf tenderness General Extremity: Negative for clubbing or cyanosis Skin Wound Narrative: A large black crucifix tattoo is noted on the patient's left lateral thigh. There are remnants of a recent attempt at tattoo removal, represented by numerous small, individual areas of eschar and necrosis. The presenting wounds are clustered, with surrounding erythema, which is resolving. Wound margins are well beveled. The wounds are full-thickness, extending through all layers of the dermis and into the subcutaneous tissues. Dimensions are documented elsewhere. Slough and devitalized tissue are present, though areas of healthy granulation tissue are appearing. Photographic images are embedded in the electronic record. Neuro oriented x3, CN's II-XII intact bilaterally, moves all extremities, no focal motor deficits and no sensory deficits noted Sensorium / Orientation: awake, alert, oriented to person, oriented to place and oriented to time Speech: speech normal Gait (Neuro): normal gait Psych Appearance: grossly normal and appropriate Attitude: calm Activity / Motor Behavior: appropriate eye contact Speech: normal speech Mood & Affect: euthymic mood Thought Process: normal thought process Thought Content: normal thought content Attention / Concentration: attention grossly intact Debridement Note Debridement Note Wound debrided: Left lateral thigh Laterality: Left Type of Debridement: Excisional debridement Anesthesia Used: 5% Lidocaine Gel and Cetacaine Depth: Down to and including healthy tissue and in the subcutaneous layer Percentage of wound debrided: 100 Instrument Used: 3mm curette Tissue Removed: Slough and devitalized tissue Severity: Fat Layer Exposed Amount of bleeding with debridement: Mild Bleeding Controlled with: Compression and gauze Patient tolerated procedure: Patient tolerated procedure well Post-Debridement Measurements and Additional Note: Post-Debridement Measurements/Treatment - Nurse 1 - General Ulcer Assessment Start: 09/06/25 13:08 Freq: Status: Active Protocol: MELIDA Activity Type Activity Date Activity User E-sign Co-sign Detail Recorded Client Recorded Date Recorded By Document 09/06/25 13:08 ML [id number] 09/06/25 13:15 ML Document 09/13/25 15:33 RB [id number] 09/13/25 15:35 RB Document 09/20/25 15:43 RB [id number] 09/20/25 15:46 RB 09/06/25 09/13/2509/20/25 13:08 15:33 15:43 WC - Today's Visit Information Type of service Initial Visit Follow-up Visit Follow-up Visit (Physician/[employer] (Physician/[employer] HELPER ) ) Arrival Mode Ambulatory Ambulatory Ambulatory Transfer Assistance None None None Patient Identification Verified (Name & Yes Yes ) Patient Requires Transmission-Based No No Precautions Height and Weight Height 5 ft 4 in Weight 213 lb Weight in Pounds 213.0 lbs Body Mass Index (BMI) 36.6 36.6 36.6 BMI Classification Obese Obese Obese Vital Signs Temperature (97.8 F-99.1 F) 96.6 F L 97.2 F L 96.8 F L Temperature Source Temporal Temporal Temporal Pulse Rate (60-100) 67 75 74 Pulse Location Monitor Monitor Monitor Respiratory Rate (12-18) 14 18 16 Respiratory rate source Observation Observation Observation Blood Pressure (90/60-120/80) 98/66 99/69 100/60 Blood Pressure Mean 76 79 73 Source Monitor Monitor Monitor Position Sitting Semi-Fowlers Sitting Blood Pressure Location Left Arm History Since Last Visit- (Skip if this is Patient's initial visit) Have you changed medications since your No No last visit? Any new allergies or adverse reactions No No Had a fall/change in ADL's that may No No increase risk of falls Signs or symptoms of abuse and/or No No neglect since last visit Have you been in the hospital since your No No last visit? Has dressing in place as prescribed Yes Yes Has compression in place as prescribed N/A N/A Has offloadiing in place as prescribed N/A N/A Experienced any changes in pain level or No No management Left Footwear Regular Shoe Right Footwear Regular Shoe Pain Scale: 0-10 Numeric Is Patient Pain Free? Yes Yes Yes WC - Nurse 1 - General Ulcer Measurement Start: 09/06/25 13:08 Freq: Status: Active Protocol: Activity Type Activity Date Activity User E-sign Co-sign Detail Recorded Client Recorded Date Recorded By Document 09/06/25 13:08 ML [id number] 09/06/25 13:15 ML Document 09/13/25 15:33 RB [id number] 09/13/25 15:35 RB Document 09/20/25 15:43 RB [id number] 09/20/25 15:46 RB 09/06/25 09/13/25 09/20/25 13:08 15:33 15:43 Wound Center Nurse 1 #1 LEFT THIGH -Combined with other wound No No -Current Size (cm) - Length 15 5.2 -Current Size (cm) - Width 14 5.6 -Current Size (cm) - Depth 0.2 0.1 -Total Square Cm 210 29.12 -Photo Taken Yes Yes -Epithelialization Large 67-100% -Tunneling No No -Undermining/Tunneling No No -Circular Undermining No -Exudate Amt Medium Medium Small -Exudate Type Serosanguineous Serosanguineous -Wound Margin Distinct, Distinct, Outline Outline Attached Attached -Granulation Amt Medium (34-66%) Medium (34-66%) Large (67-100%) -Granulation Quality [place],Red -Slough/Fibrin Yes Yes Yes -Necrosis Amt Medium (34-66%) Small (1-33%) Small (1-33%) -Necrotic Tissue Type Adherent Slough Adherent Slough Adherent Slough -Structure Exposed N/A N/A -Texture ([place]-wound Skin Appearance) Assessed Assessed, No Abnormality, Scarring Assessed -Moisture ([place]-wound Skin Appearance) Assessed Assessed No Abnormality, Assessed -Color ([place]-wound Skin Appearance) Assessed Assessed No Abnormality, Assessed -Temperature ([place]-wound Skin No Abnormality No Abnormality No Abnormality Appearance) (Pt Warm) (Pt Warm) (Pt Warm) -Tenderness on Palpation ([place]-wound Yes No No Skin Appearance) -Ulcer Cleansing Rinsed/ Wound Cleanser Rinsed/ Irrigated with Irrigated with Saline Saline -Foul Odor after Cleansing No No No -Anesthetic Used 4% Lidocaine 5% Lidocaine 5% Lidocaine Solution Gel Gel WC - Nurse 2 - General Ulcer CM Notes Start: 09/06/25 13:08 Freq: Status: Active Protocol: Activity Type Activity Date Activity User E-sign Co-sign Detail Recorded Client Recorded Date Recorded By Document 09/06/25 13:32 JF [id number] 09/06/25 13:53 JF Document 09/13/25 16:03 DS [id number] 09/13/25 16:06 DS Document 09/20/25 15:57 DS [id number] 09/20/25 15:59 DS 09/06/25 09/13/25 09/20/25 13:32 16:03 15:57 Wound Center Nurse 2 #1 LEFT THIGH -Time 13:51 16:03 15:57 -Correct Patient Yes Yes Yes -Correct Side, Site, Position Yes Yes Yes -Correct Procedure Yes Yes Yes -Procedure Performed Yes Yes Yes -Type of Procedure Debridement Debridement Debridement -Clinical Debridement Subcutaneous Subcutaneous Subcutaneous -Tissue Removed Subcutaneous Subcutaneous Subcutaneous -Post Debridement (cm) - Length 6.5 5.0 4.5 -Post Debridement (cm) - Width 10 3.5 3.2 -Post Debridement (cm) - Depth 0.1 0.1 0.1 -Total Square (Post) (cm) 65.0 17.50 14.40 -Area of Debridement (cm) - Length 6.5 5.0 4.5 -Area of Debridement (cm) - Width 10 3.5 3.2 -Total Square (Area) (cm) 65.0 17.50 14.40 -Tunneling No No No -Undermining/Tunneling No No No -Circular Undermining No No No -Wound/Ulcer Outcome Not Healed Not Healed Not Healed -Ulcer Cleansing Rinsed/ gauze gauze Irrigated with Saline -Foul Odor after Cleansing No No No -Bioengineered Tissue No No No -Bleeding Controlled with Pressure Pressure Pressure -Treatment Response Procedure Procedure Procedure Tolerated Well Tolerated Well Tolerated Well -Offloading No -Debridement - Subq, 1st 20sq cm Yes Yes Yes -Debridement, SubQ, ea addt'l 20sq cm 4 or part thereof Pain Scale: 0-10 Numeric Is Patient Pain Free? Yes Yes Yes WC - Nurse 3 - General Ulcer D/C NN Start: 09/06/25 13:08 Freq: Status: Active Protocol: Activity Type Activity Date Activity User E-sign Co-sign Detail Recorded Client Recorded Date Recorded By Document 09/06/25 14:00 ML [id number] 09/06/25 14:01 ML Document 09/13/25 16:11 RB [id number] 09/13/25 16:12 RB Document 09/20/25 16:11 TS [id number] 09/20/25 16:13 TS 09/06/25 09/13/25 09/20/25 14:00 16:11 16:11 Wound Care Center Nurse 3 #1 LEFT THIGH -Ulcer Cleansing Rinsed/ Rinsed/ Rinsed/ Irrigated with Irrigated with Irrigated with Saline Saline Saline -Primary Dressing Applied Aquacel AG 4x4, Aquacel AG 4x4, Aquacel AG 4x4, Silicone Border Silicone Border Silicone Border Foam 6x6 Foam 6x6 Foam 6x6 -Aquacel AG 4x4 2 1 1 -Silicone Border Foam 6x6 1 1 1 Treatment Response Procedure Procedure Tolerated Well Tolerated Well Pain Scale: 0-10 Numeric Is Patient Pain Free? Yes Yes Yes WC - Visit Discharge Discharge Condition Stable Stable Ambulatory Status Ambulatory Ambulatory Transportation Private Auto Private Auto Medication Reconcilliation completed & No No provided to patient/care provider Clinical Summary of Care Provided Yes Yes Charges/Coding Procedures Integumentary [id number]: [id number] Alondra subq tissue 20 sq cm/< Assessment/Plan Assessment/Plan (1) Complicated open wound of left thigh: CODE(S): S71.102A - Unspecified open wound, left thigh, initial encounter QUALIFIERS: Encounter type: subsequent encounter Qualified Code(s): S71.102D - Unspecified open wound, left thigh, subsequent encounter (2) Leg wound, left: CODE(S): S81.802A - Unspecified open wound, left lower leg, initial encounter QUALIFIERS: Encounter type: subsequent encounter Qualified Code(s): S81.802D - Unspecified open wound, left lower leg, subsequent encounter (3) Cellulitis of left leg: CODE(S): L03.116 - Cellulitis of left lower limb (4) Extensive tattoos: CODE(S): L81.8 - Other specified disorders of pigmentation (5) History of breast implant removal: CODE(S): Z98.86 - Personal history of breast implant removal (6) Hypothyroidism: CODE(S): E03.9 - Hypothyroidism, unspecified (7) Non-smoker: CODE(S): Z78.9 - Other specified health status (8) History of hysterectomy with oophorectomy: (9) Hx of abdominoplasty: CODE(S): Z98.890 - Other specified postprocedural states (10) H/O breast augmentation: CODE(S): Z98.82 - Breast implant status (11) Hx of tubal ligation: CODE(S): Z98.51 - Tubal ligation status (12) History of endometrial biopsy: CODE(S): Z92.89 - Personal history of other medical treatment PLAN: Plan This is a generally healthy 49-year-old female who has multiple tattoos at various sites on her body. A large, black tattoo on her left lateral thigh underwent attempts at initial tattoo removal approximately 3 weeks prior to the patient's presentation. The tattoo removal procedure resulted in an area of sahil necrosis and gangrene, as well as cellulitis. The patient had recently been treated with 2 courses of oral antibiotic, including cephalexin and doxycycline. Debridement has been performed in the Wound Center today. Additionally, a swab was recently obtained for aerobic and anaerobic bacterial growth, which was positive for Staphylococcus aureus and Streptococcus sanguinis. The patient was placed on Augmentin 500/125 every 12 hours for total of 10 days, which is nearly completed. We are to continue the use of moistened Aquacel Ag topically to the clustered open wound. The Aquacel Ag is to be applied daily. The patient has been instructed in appropriate means of application and has been provided the product for use. The patient is to return in 1 week for reevaluation. Total time: 22 minutes
[2025-09-27 15:33] VITALS: BP 109/71; PULSE 79; RESP 14; TEMP 36.1; BMI 36.6
--- NOTE | 2025-09-27 23:09 | PCM.WC.HP ---
History of Present Illness Date of Service: 09/27/25 Chief Complaint: Infected wounds of the left thigh related to a recent tattoo removal procedure History of Wound: This is a 49-year-old female who is generally healthy and active. She has multiple tattoos on various areas of her body. She has a longstanding tattoo of a large, black crucifix on her left lateral thigh. The patient made a recent decision to seek treatment for removal of this left lateral thigh tattoo. Approximately 3 weeks prior to her initial presentation, she underwent TEPR (trans-epidermal pigment release) at the site, which is a non-laser tattoo removal method that uses a proprietary solution and a handpiece with a sterile brush to create controlled abrasions, breakdown ink particles in the dermis, and facilitate the ink's release from the body via scabs. However, 4 days after the tattoo removal procedure the patient developed a cellulitis about the site, and sought evaluation by her primary care physician. She was placed on a course of oral cephalexin. When the cellulitis did not completely respond, the patient went to an urgent care center and was placed on doxycycline for a total of 7 days. She presented to the [facility] for further evaluation and management of the resulting wounds on the left lateral thigh, and the residual cellulitic changes. The patient is generally healthy, citing hypothyroidism as a medical issue. She denies a history of myocardial infarction, congestive heart failure, hypertension, diabetes mellitus, cerebrovascular accident, pulmonary disease, and renal disease. She does not smoke tobacco products. FORMERLY [facility], [facility] Medical History Complicated open wound of left thigh Hypothyroidism Leg wound, left Extensive tattoos Wears glasses Post-menopausal Depression Anxiety History of steroid therapy Thyroid disease Injury of back History of IBS Non-smoker Anxiety and depression Home Medications ?Medication ?Instructions ?Recorded ?Last Taken ?Type levothyroxine 50 mcg capsule 50 mcg PO DAILY 05/05/23 Unknown History cholecalciferol (vitamin D3) 25 25 mcg PO QDAY 10/21/24 Unknown History mcg (1,000 unit) capsule mecobalamin (vitamin B12) 1,000 1,000 mcg PO QDAY 10/21/24 Unknown History mcg chewable tablet sertraline 100 mg tablet 150 mg PO DAILY 11/30/24 Unknown History tirzepatide (weight loss) 7.5 7.5 mg subcut QWEEK 09/06/25 Unknown History mg/0.5 mL subcutaneous pen injector (Zepbound) amoxicillin 500 mg-potassium 1 tab PO Q12H Wound Infection #20 09/12/25 Unknown Rx clavulanate 125 mg tablet tabs (Augmentin) Allergy/AdvReac Type Severity Reaction Status Date / Time codeine Allergy Rash Verified 09/01/25 13:25 Opioids - Morphine Analogues AdvReac Intermediate Other Verified 09/01/25 13:25 paroxetine (From Paxil) AdvReac Mild Other Verified 09/01/25 13:25 Family History Mother Cancer cervical CAD (coronary artery disease) COPD (chronic obstructive pulmonary disease) Emphysema of lung Brother No problems noted. Grandfather Colon cancer Other Thyroid disorder Surgical History History of breast implant removal History of endometrial biopsy Hx of tubal ligation H/O breast augmentation Hx of abdominoplasty History of hysterectomy with oophorectomy Social History adopted: No number of children: 1 current occupational status: employed current occupation: [employer] leisure activities: exercise Smoking Status: Never smoker what type of physical activity do you participate in: weight training seatbelt use: always Vital Signs Vital Signs Vital Signs: 09/27/25 15:33 Temperature 97 F L Temperature Source Temporal Pulse Rate 79 Respiratory Rate 14 Blood Pressure 109/71 Blood Pressure Mean 83 Blood Pressure Source Monitor Blood Pressure Position Sitting Blood Pressure Location Right Arm Weight Weight: 213 lb Body Mass Index (BMI) 36.6 Physical Exam Const alert, oriented x3, no apparent distress, no limitations, healthy appearing and well nourished Constitutional Narrative: The patient's BMI is 36.6. General Appearance: cooperative, comfortable, well kempt and well developed Orientation / Consciousness: awake, oriented to person, oriented to place and oriented to time HEENT normocephalic and head/scalp atraumatic Head and Scalp: normal to inspection, normocephalic and atraumatic Face and Sinus: normal facial exam Nose: external nose normal External Ear: external ears normal Eyes EOMs intact bilaterally General Eye: normal appearance of both eyes Alignment: alignment normal Neck full ROM Resp normal respiratory effort, normal air movement, no retractions and no use of accessory muscles Effort and Inspection: able to speak in complete sentences Extremity no calf tenderness General Extremity: Negative for clubbing or cyanosis Skin Wound Narrative: A large black crucifix tattoo is noted on the patient's left lateral thigh. There are remnants of a recent attempt at tattoo removal, represented by numerous small, individual areas of eschar and necrosis. The presenting wounds are clustered, with surrounding erythema, which is nearly resolved. Wound margins are well beveled. The wounds are full-thickness, extending through all layers of the dermis and into the subcutaneous tissues. Dimensions are documented elsewhere. A large portion of the clustered wound has now epithelialized, with only a small remaining wound. The base of the remaining wound is generally pink and healthy in appearance, with a small amount of bioburden. Neuro oriented x3, CN's II-XII intact bilaterally, moves all extremities, no focal motor deficits and no sensory deficits noted Sensorium / Orientation: awake, alert, oriented to person, oriented to place and oriented to time Speech: speech normal Gait (Neuro): normal gait Psych Appearance: grossly normal and appropriate Attitude: calm Activity / Motor Behavior: appropriate eye contact Speech: normal speech Mood & Affect: euthymic mood Thought Process: normal thought process Thought Content: normal thought content Attention / Concentration: attention grossly intact Debridement Note Debridement Note Wound debrided: Left lateral thigh Laterality: Left Type of Debridement: Excisional debridement Anesthesia Used: 5% Lidocaine Gel Depth: Down to and including healthy tissue and in the subcutaneous layer Percentage of wound debrided: 100 Instrument Used: 3mm curette Tissue Removed: Bioburden Severity: Fat Layer Exposed Amount of bleeding with debridement: Mild Bleeding Controlled with: Compression and gauze Patient tolerated procedure: Patient tolerated procedure well Post-Debridement Measurements and Additional Note: Post-Debridement Measurements/Treatment WC - Nurse 1 - General Ulcer Assessment Start: 09/06/25 13:08 Freq: Status: Active Protocol: MELIDA Activity Type Activity Date Activity User E-sign Co-sign Detail Recorded Client Recorded Date Recorded By Document 09/06/25 13:08 ML [id number] 09/06/25 13:15 ML Document 09/13/25 15:33 RB [id number] 09/13/25 15:35 RB Document 09/20/25 15:43 RB [id number] 09/20/25 15:46 RB Document 09/27/25 15:33 ML [id number] 09/27/25 15:34 ML 09/06/25 09/13/25 09/20/25 13:08 15:33 15:43 WC - Today's Visit Information Type of service Initial Visit Follow-up Visit Follow-up Visit (Physician/ENVIRONMENTAL HEALTH AND SAFETY MANAGER (Physician/ENVIRONMENTAL HEALTH AND SAFETY MANAGER ) ) Arrival Mode Ambulatory Ambulatory Ambulatory Transfer Assistance None None None Patient Identification Verified (Name & Yes Yes ) Patient Requires Transmission-Based No No Precautions Height and Weight Height 5 ft 4 in Weight 213 lb Weight in Pounds 213.0 lbs Body Mass Index (BMI) 36.6 36.6 36.6 BMI Classification Obese Obese Obese Vital Signs Temperature (97.8 F-99.1 F) 96.6 F L 97.2 F L 96.8 F L Temperature Source Temporal Temporal Temporal Pulse Rate (60-100) 67 75 74 Pulse Location Monitor Monitor Monitor Respiratory Rate (12-18) 14 18 16 Respiratory rate source Observation Observation Observation Blood Pressure (90/60-120/80) 98/66 99/69 100/60 Blood Pressure Mean 76 79 73 Source Monitor Monitor Monitor Position Sitting Semi-Fowlers Sitting Blood Pressure Location Left Arm History Since Last Visit- (Skip if this is Patient's initial visit) Have you changed medications since your No No last visit? Any new allergies or adverse reactions No No Had a fall/change in ADL's that may No No increase risk of falls Signs or symptoms of abuse and/or No No neglect since last visit Have you been in the hospital since your No No last visit? Has dressing in place as prescribed Yes Yes Has compression in place as prescribed N/A N/A Has offloadiing in place as prescribed N/A N/A Experienced any changes in pain level or No No management Left Footwear Regular Shoe Right Footwear Regular Shoe Pain Scale: 0-10 Numeric Is Patient Pain Free? Yes Yes Yes 09/27/25 15:33 WC - Today's Visit Information Type of service Follow-up Visit (Physician/ENVIRONMENTAL HEALTH AND SAFETY MANAGER ) Arrival Mode Ambulatory Transfer Assistance None Patient Identification Verified (Name & Yes ) Patient Requires Transmission-Based No Precautions Height and Weight Height Weight Weight in Pounds Body Mass Index (BMI) 36.6 BMI Classification Obese Vital Signs Temperature (97.8 F-99.1 F) 97 F L Temperature Source Temporal Pulse Rate (60-100) 79 Pulse Location Monitor Respiratory Rate (12-18) 14 Respiratory rate source Observation Blood Pressure (90/60-120/80) 109/71 Blood Pressure Mean 83 Source Monitor Position Sitting Blood Pressure Location Right Arm History Since Last Visit- (Skip if this is Patient's initial visit) Have you changed medications since your No last visit? Any new allergies or adverse reactions No Had a fall/change in ADL's that may No increase risk of falls Signs or symptoms of abuse and/or neglect since last visit Have you been in the hospital since your No last visit? Has dressing in place as prescribed Yes Has compression in place as prescribed N/A Has offloadiing in place as prescribed N/A Experienced any changes in pain level or No management Left Footwear Right Footwear Pain Scale: 0-10 Numeric Is Patient Pain Free? Yes WC - Nurse 1 - General Ulcer Measurement Start: 09/06/25 13:08 Freq: Status: Active Protocol: Activity Type Activity Date Activity User E-sign Co-sign Detail Recorded Client Recorded Date Recorded By Document 09/06/25 13:08 ML [id number] 09/06/25 13:15 ML Document 09/13/25 15:33 RB [id number] 09/13/25 15:35 RB Document 09/20/25 15:43 RB [id number] 09/20/25 15:46 RB Document 09/27/25 15:33 ML [id number] 09/27/25 15:34 ML 09/06/25 09/13/25 09/20/25 13:08 15:33 15:43 Wound Center Nurse 1 #1 LEFT THIGH -Combined with other wound No No -Current Size (cm) - Length 15 5.2 -Current Size (cm) - Width 14 5.6 -Current Size (cm) - Depth 0.2 0.1 -Total Square Cm 210 29.12 -Photo Taken Yes Yes -Epithelialization Large 67-100% -Tunneling No No -Undermining/Tunneling No No -Circular Undermining No -Exudate Amt Medium Medium Small -Exudate Type Serosanguineous Serosanguineous -Wound Margin Distinct, Distinct, Outline Outline Attached Attached -Granulation Amt Medium (34-66%) Medium (34-66%) Large (67-100%) -Granulation Quality Good Thunder Good Thunder,Red -Slough/Fibrin Yes Yes Yes -Necrosis Amt Medium (34-66%) Small (1-33%) Small (1-33%) -Necrotic Tissue Type Adherent Slough Adherent Slough Adherent Slough -Structure Exposed N/A N/A -Texture ([place]-wound Skin Appearance) Assessed Assessed, No Abnormality, Scarring Assessed -Moisture ([place]-wound Skin Appearance) Assessed Assessed No Abnormality, Assessed -Color ([place]-wound Skin Appearance) Assessed Assessed No Abnormality, Assessed -Temperature ([place]-wound Skin No Abnormality No Abnormality No Abnormality Appearance) (Pt Warm) (Pt Warm) (Pt Warm) -Tenderness on Palpation ([place]-wound Yes No No Skin Appearance) -Ulcer Cleansing Rinsed/ Wound Cleanser Rinsed/ Irrigated with Irrigated with Saline Saline -Foul Odor after Cleansing No No No -Anesthetic Used 4% Lidocaine 5% Lidocaine 5% Lidocaine Solution Gel Gel 09/27/25 15:33 Wound Center Nurse 1 #1 LEFT THIGH -Combined with other wound -Current Size (cm) - Length 0.1 -Current Size (cm) - Width 0.1 -Current Size (cm) - Depth 0.1 -Total Square Cm 0.01 -Photo Taken -Epithelialization -Tunneling -Undermining/Tunneling -Circular Undermining -Exudate Amt Small -Exudate Type Serosanguineous -Wound Margin -Granulation Amt None Present (0 %) -Granulation Quality -Slough/Fibrin Yes -Necrosis Amt None Present (0 %) -Necrotic Tissue Type -Structure Exposed -Texture ([place]-wound Skin Appearance) Assessed -Moisture ([place]-wound Skin Appearance) Assessed -Color ([place]-wound Skin Appearance) Assessed -Temperature ([place]-wound Skin No Abnormality Appearance) (Pt Warm) -Tenderness on Palpation ([place]-wound No Skin Appearance) -Ulcer Cleansing Rinsed/ Irrigated with Saline -Foul Odor after Cleansing No -Anesthetic Used 5% Lidocaine Gel - Nurse 2 - General Ulcer CM Notes Start: 09/06/25 13:08 Freq: Status: Active Protocol: Activity Type Activity Date Activity User E-sign Co-sign Detail Recorded Client Recorded Date Recorded By Document 09/06/25 13:32 RANDALL [id number] 09/06/25 13:53 JF Document 09/13/25 16:03 DS [id number] 09/13/25 16:06 DS Document 09/20/25 15:57 DS [id number] 09/20/25 15:59 DS Document 09/27/25 16:06 DS [id number] 09/27/25 16:07 DS 09/06/25 09/13/25 09/20/25 13:32 16:03 15:57 Wound Center Nurse 2 #1 LEFT THIGH -Time 13:51 16:03 15:57 -Correct Patient Yes Yes Yes -Correct Side, Site, Position Yes Yes Yes -Correct Procedure Yes Yes Yes -Procedure Performed Yes Yes Yes -Type of Procedure Debridement Debridement Debridement -Clinical Debridement Subcutaneous Subcutaneous Subcutaneous -Tissue Removed Subcutaneous Subcutaneous Subcutaneous -Post Debridement (cm) - Length 6.5 5.0 4.5 -Post Debridement (cm) - Width 10 3.5 3.2 -Post Debridement (cm) - Depth 0.1 0.1 0.1 -Total Square (Post) (cm) 65.0 17.50 14.40 -Area of Debridement (cm) - Length 6.5 5.0 4.5 -Area of Debridement (cm) - Width 10 3.5 3.2 -Total Square (Area) (cm) 65.0 17.50 14.40 -Tunneling No No No -Undermining/Tunneling No No No -Circular Undermining No No No -Wound/Ulcer Outcome Not Healed Not Healed Not Healed -Ulcer Cleansing Rinsed/ gauze gauze Irrigated with Saline -Foul Odor after Cleansing No No No -Bioengineered Tissue No No No -Bleeding Controlled with Pressure Pressure Pressure -Treatment Response Procedure Procedure Procedure Tolerated Well Tolerated Well Tolerated Well -Offloading No -Debridement - Subq, 1st 20sq cm Yes Yes Yes -Debridement, SubQ, ea addt'l 20sq cm 4 or part thereof Pain Scale: 0-10 Numeric Is Patient Pain Free? Yes Yes Yes 09/27/25 16:06 Wound Center Nurse 2 #1 LEFT THIGH -Time 16:06 -Correct Patient Yes -Correct Side, Site, Position Yes -Correct Procedure Yes -Procedure Performed Yes -Type of Procedure Debridement -Clinical Debridement Subcutaneous -Tissue Removed Subcutaneous -Post Debridement (cm) - Length 0.3 -Post Debridement (cm) - Width 0.3 -Post Debridement (cm) - Depth 0.1 -Total Square (Post) (cm) 0.09 -Area of Debridement (cm) - Length 0.3 -Area of Debridement (cm) - Width 0.3 -Total Square (Area) (cm) 0.09 -Tunneling No -Undermining/Tunneling No -Circular Undermining No -Wound/Ulcer Outcome Not Healed -Ulcer Cleansing Rinsed/ Irrigated with Saline -Foul Odor after Cleansing No -Bioengineered Tissue No -Bleeding Controlled with -Treatment Response -Offloading -Debridement - Subq, 1st 20sq cm Yes -Debridement, SubQ, ea addt'l 20sq cm or part thereof Pain Scale: 0-10 Numeric Is Patient Pain Free? Yes WC - Nurse 3 - General Ulcer D/C NN Start: 09/06/25 13:08 Freq: Status: Active Protocol: Activity Type Activity Date Activity User E-sign Co-sign Detail Recorded Client Recorded Date Recorded By Document 09/06/25 14:00 ML [id number] 09/06/25 14:01 ML Document 09/13/25 16:11 RB [id number] 09/13/25 16:12 RB Document 09/20/25 16:11 TS [id number] 09/20/25 16:13 TS Document 09/27/25 16:14 DS [id number] 09/27/25 16:14 DS 09/06/25 09/13/25 09/20/25 14:00 16:11 16:11 Wound Care Center Nurse 3 #1 LEFT THIGH -Ulcer Cleansing Rinsed/ Rinsed/ Rinsed/ Irrigated with Irrigated with Irrigated with Saline Saline Saline -Primary Dressing Applied Aquacel AG 4x4, Aquacel AG 4x4, Aquacel AG 4x4, Silicone Border Silicone Border Silicone Border Foam 6x6 Foam 6x6 Foam 6x6 -Primary Dressing Covered/Secured with -Aquacel AG 4x4 2 1 1 -Hydrogel -Silicone Border Foam 6x6 1 1 1 Treatment Response Procedure Procedure Tolerated Well Tolerated Well Pain Scale: 0-10 Numeric Is Patient Pain Free? Yes Yes Yes - Visit Discharge Discharge Condition Stable Stable Ambulatory Status Ambulatory Ambulatory Transportation Private Auto Private Auto Medication Reconcilliation completed & No No provided to patient/care provider Clinical Summary of Care Provided Yes Yes 09/27/25 16:14 Wound Care Center Nurse 3 #1 LEFT THIGH -Ulcer Cleansing -Primary Dressing Applied C Hydrogel -Primary Dressing Covered/Secured with Dry Gauze, Secured with Tape -Aquacel AG 4x4 -Hydrogel 1 -Silicone Border Foam 6x6 Treatment Response Pain Scale: 0-10 Numeric Is Patient Pain Free? Yes WC - Visit Discharge Discharge Condition Stable Ambulatory Status Ambulatory Transportation Private Auto Medication Reconcilliation completed & provided to patient/care provider Clinical Summary of Care Provided Charges/Coding Procedures Integumentary [id number]: [id number] Alondra subq tissue 20 sq cm/< Assessment/Plan Assessment/Plan (1) Complicated open wound of left thigh: CODE(S): S71.102A - Unspecified open wound, left thigh, initial encounter QUALIFIERS: Encounter type: subsequent encounter Qualified Code(s): S71.102D - Unspecified open wound, left thigh, subsequent encounter (2) Leg wound, left: CODE(S): S81.802A - Unspecified open wound, left lower leg, initial encounter QUALIFIERS: Encounter type: subsequent encounter Qualified Code(s): S81.802D - Unspecified open wound, left lower leg, subsequent encounter (3) Cellulitis of left leg: CODE(S): L03.116 - Cellulitis of left lower limb (4) Extensive tattoos: CODE(S): L81.8 - Other specified disorders of pigmentation (5) History of breast implant removal: CODE(S): Z98.86 - Personal history of breast implant removal (6) Hypothyroidism: CODE(S): E03.9 - Hypothyroidism, unspecified (7) Non-smoker: CODE(S): Z78.9 - Other specified health status (8) History of hysterectomy with oophorectomy: (9) Hx of abdominoplasty: CODE(S): Z98.890 - Other specified postprocedural states (10) H/O breast augmentation: CODE(S): Z98.82 - Breast implant status (11) Hx of tubal ligation: CODE(S): Z98.51 - Tubal ligation status (12) History of endometrial biopsy: CODE(S): Z92.89 - Personal history of other medical treatment PLAN: Plan This is a generally healthy 49-year-old female who has multiple tattoos at various sites on her body. A large, black tattoo on her left lateral thigh underwent attempts at initial tattoo removal approximately 3 weeks prior to the patient's presentation. The tattoo removal procedure resulted in an area of sahil necrosis and gangrene, as well as cellulitis. The patient had recently been treated with 2 courses of oral antibiotic, including cephalexin and doxycycline. Debridement has been performed in the Wound Center today. Additionally, a swab was recently obtained for aerobic and anaerobic bacterial growth, which was positive for Staphylococcus aureus and Streptococcus sanguinis. The patient was placed on Augmentin 500/125 every 12 hours for total of 10 days, which is now completed. We are to continue the use collagen hydrogel topically to the remaining wound, which is to be applied on a daily basis. The patient has been instructed in appropriate means of application and has been provided the product for use. The patient is to return in 1 week for reevaluation. Total time: 24 minutes
--- NOTE | 2025-09-29 11:29 | WC ---
PHOTO-LEFT UPPER THIGH 09/27/25
== END 2025-09-30 23:59 | disposition home or self-care (01) ==
LOC: WC 15:30
PROVIDERS: PCP Family Medicine; Referring Provider Physician Assistant; Visit Provider Surgery
DX: L03.116 Cellulitis of left lower limb (principal); S81.802D Unspecified open wound, left lower leg, subsequent encounter; Z90.710 Acquired absence of both cervix and uterus; E03.9 Hypothyroidism, unspecified; S71.102D Unspecified open wound, left thigh, subsequent encounter; L81.8 Other specified disorders of pigmentation; Z98.51 Tubal ligation status; Z92.89 Personal history of other medical treatment; F41.9 Anxiety disorder, unspecified; F32.A Depression, unspecified; Z98.86 Personal history of breast implant removal; B95.61 Methicillin susceptible Staphylococcus aureus infection as the cause of diseases classified elsewhere
CPT/HCPCS: 11042; 11045; 87070; 87075; 87077; 87186; 87205; 99213; G0463